=== PATIENT | female | born 1980 | race Caucasian/White ===

== ENCOUNTER 2020-11-25 11:29 | Emergency (ER) | payer OTHER, SELFPAY ==
[2020-11-25 11:47] VITALS: BP 166/110; PULSE 81; RESP 18; TEMP 36.4; O2SAT 96; BMI 31.7
--- NOTE | 2020-11-25 11:53 | HMH.EDUTC ---
[facility] [place] Clinical Impression: UTI (urinary tract infection) Qualifiers: Urinary tract infection type: site unspecified Hematuria presence: with hematuria Qualified Code(s): N39.0 - Urinary tract infection, site not specified Hematuria Qualifiers: Hematuria type: gross Qualified Code(s): R31.0 - Gross hematuria Disposition: Home, Self-Care Condition on Discharge: Good Instructions: Urinary Tract Infection, DI for Urinary Tract Infection (UTI) Additional Instructions: Drink plenty of fluids. Take tylenol or ibuprofen for pain or fever. Take the medications as directed. Follow up with your regular doctor. GO TO THE ER FOR ANY WORSENING SYMPTOMS The pyridium will make your urine turn orange, this is an expected side effect. It will stain your clothes if it comes into contact with them. Prescriptions: Ondansetron [Zofran 4mg ODT] 4 mg PO Q8HP PRN #20 tab.rapdis PRN Reason: Nausea [facility] Ciprofloxacin HCl 500 mg PO BID 7 Days #14 tab Transmission Status: Received by [facility] Phenazopyridine HCl [Pyridium 200mg Tablet] 200 pow PO TID #6 tab [facility] Referrals: Sunni Goodwin [Primary Care Provider] - Forms: Work/School Release Time of Disposition: 12:36 Medical Decision Making - Medical Records Medical records reviewed: No: I reviewed the patient's medical records. - Lang Inquiry Pt receiving controlled substance: No Vital Signs: 11/25/20 11:47 11/25/20 12:47 Temperature 97.6 F 98 F Temperature Source Oral Pulse Rate 80 Pulse Rate [Left] 81 Respiratory Rate 18 18 Blood Pressure 000/00 L Blood Pressure [Right Arm] 166/110 H Blood Pressure Mean [Right Arm] 128 02 Sat by Pulse Oximetry 96 - Lab Data Lab results reviewed: Yes: I reviewed the patient's lab results. Orders (Tests/Meds): ED MEDICATIONS Discontinued Medications Generic Name Dose Route Start Last Admin Trade Name Freq PRN Reason Stop Dose Admin Ceftriaxone Sodium 1 gm 11/25/20 12:21 11/25/20 12:47 Ceftriaxone 1gm Vial IM 11/25/20 12:22 1 gm ONCE ONE Administration Protocol Ketorolac Tromethamine 60 mg 11/25/20 12:21 11/25/20 12:47 Ketorolac 60mg/2ml Vial IM 11/25/20 12:22 60 mg ONCE ONE Administration Lidocaine HCl 0 ml 11/25/20 12:21 11/25/20 12:47 Lidocaine 1% 5ml Pf Vial IM 11/25/20 12:22 2.5 ml ONCE ONE Administration ORDERS Category Date Time Status Urine Culture Stat Micro 11/25/20 12:01 [place] [facility] [place] - General Stated complaint: blood in urine, pelvic Time Seen by Provider: 11/25/20 11:53 Mode of Arrival: Ambulatory Source of Information: Patient Limitations: No Limitations Description of Symptoms (Recalled from Triage Doc. by RN): pt states she is having bilateral flank pain, LLQ pain, frequency and burning with urination. pt states she is having large amounts of blood in her urine. the blood in urine happend 1x 3-4 wks ago and 1x about two months ago however, there was no pain or any other symptoms. pt has a hx of kidney stones. HEENT Symptoms (Recalled from RN notes): No Resp Symptoms (Recalled from RN notes): No Skin Symptoms (Recalled from RN notes): No MS Symptoms (Recalled from RN notes): No Functional Status (Recalled from RN notes): na - History of Present Illness Provider Complaint: She states that for the past 1 day she has had blood in her urine, low back pain, and burning with urination. - Related Data Previous Rx's Medication Instructions Recorded Ciprofloxacin HCl 500 mg PO BID 7 Days #14 tab 11/25/20 Ondansetron [Zofran 4mg ODT] 4 mg PO Q8HP PRN #20 tab.rapdis 11/25/20 Phenazopyridine HCl [Pyridium 200 pow PO TID #6 tab 11/25/20 200mg Tablet] Allergies Allergy/AdvReac Type Severity Reaction Status Date / Time No Known Allergies Allergy Verified 11/25/20 12:46
[2020-11-25 12:47] VITALS: BP 000/00; PULSE 80; RESP 18; TEMP 36.6
== END 2020-11-25 12:59 | disposition home or self-care (01) ==
PROVIDERS: Emergency Provider Nurse Practitioner Family; PCP Emergency Medicine
DX: N30.01 Acute cystitis with hematuria (principal)
CPT/HCPCS: 87086; 96372; 99202; G0463

== ENCOUNTER 2021-03-06 00:17 | Emergency (ER) | payer OTHER, SELFPAY ==
[2021-03-06] VITALS (13 sets, daily range): BP systolic 112–164; BP diastolic 72–98; PULSE 62–86; RESP 16–20; TEMP 36.7–37; O2SAT 93–100; BMI 32.5
--- NOTE | 2021-03-06 00:37 | CT_ITS ---
PROCEDURE INFORMATION: Exam: CT Abdomen And Pelvis Without Contrast Exam date and time: 03/06/2021 12:37 AM Age: 41 years old Clinical indication: Nausea and vomiting; Abdominal pain; Left lower quadrant (llq); Prior surgery; Patient HX: Lt lower flank pain with n/v, HX of stones, no abd SX other than previous lithotripsy; Additional info: L flank, llq abd pain with hematuria TECHNIQUE: Imaging protocol: Computed tomography of the abdomen and pelvis without contrast. Radiation optimization: All CT scans at this facility use at least one of these dose optimization techniques: automated exposure control; mA and/or kV adjustment per patient size (includes targeted exams where dose is matched to clinical indication); or iterative reconstruction. COMPARISON: No relevant prior studies available. FINDINGS: Lungs: Mild dependent atelectasis. Liver: Unremarkable noncontrast appearance. Gallbladder and bile ducts: No wall thickening. No calcified stones. No biliary dilation. Pancreas: Unremarkable noncontrast appearance. Spleen: Normal. No splenomegaly. Adrenal glands: Normal. No mass. Kidneys and ureters: There is marked dilation of the left upper pole collecting system. There is an exophytic mass measuring 3.6 x 2.6 x 3.6 cm, which arises from the posterior aspect of the left upper pole. Its attenuation is similar to that of the left renal collecting system, and could be an extension of the dilated left upper pole collecting system, a cyst containing complex fluid, or a soft tissue mass. There is a 4 mm calcification within this exophytic left upper pole mass. [id number] left pelviectasis and left lower pole caliectasis. There are few small caliceal calculi at the left lower pole measuring up to 2 mm in size. There is abnormal high attenuation within the left renal collecting system and ureter consistent with hemorrhage. No left ureteral calculus or obstruction. Right kidney is unremarkable. No nephrolithiasis. Hydronephrosis. Stomach and bowel: No obstruction. No abnormal bowel wall thickening. Appendix: No evidence of appendicitis. Intraperitoneal space: No pneumoperitoneum. No ascites. Vasculature: Unremarkable. No abdominal aortic aneurysm. Lymph nodes: No enlarged lymph nodes. Urinary bladder: No wall thickening. Reproductive: Unremarkable as visualized. Bones/joints: Unremarkable. No acute fracture. Soft tissues: Unremarkable. IMPRESSION: 1. Abnormally dilated left renal collecting system, most significantly affecting the upper pole. No ureteral dilation/obstruction. There is hemorrhage within the left renal collecting system and ureter, the exact etiology of which is unclear. 2. Indeterminate exophytic mass arising from the left upper pole measuring 3.6 x 2.6 x 3.6 cm. Unclear if this represents a markedly dilated left upper pole calyx, a cyst containing complex fluid, or a soft tissue mass. Renal ultrasound may be useful for further assessment in the short-term. Additionally, following resolution of collecting system hemorrhage, a renal protocol CT or MRI would be advisable for complete characterization. 3. Nonobstructing left renal calculi.
[2021-03-06 00:43] LABS: Microscopic, Urine URINE MICROSCOPIC (MICROSCOPIC)
[2021-03-06 00:48] LABS: Chloride 105 mmol/L (98-107); Sodium 140 mmol/L (136-145)
[2021-03-06 00:50] LABS: Urine Pregnancy, HCG Qual. Negative (Negative)
[2021-03-06 00:51] LABS: Alanine Aminotransferase 19 U/L (12-78); Albumin Level 4.1 g/dl (3.5-5.0); Albumin/Globulin Ratio 1.5 (1.1-1.8); Alkaline Phosphatase 94 U/L (38-126); Amylase 54 U/L (30-110); Aspartate Amino Transferase 23 U/L (14-36); Bilirubin,Total 0.3 mg/dl (0.2-1.3); Blood Urea Nitrogen 11 mg/dl (7-17); Calcium 8.8 mg/dl (8.4-10.2); Carbon Dioxide 28 mmol/L (22.0-30.0); Creatinine Clearance Estimated 142 mL/min (50-200); Estimated Glomerular Filt Rate 92 ml/min (>60); GFR (African American) 111 ML/MIN (>60); Globulin 2.7 g/dL (1.3-3.2); Glucose 108 mg/dl (74-100); Lipase 32 U/L (23-300); Total Protein,Serum 6.8 g/dl (6.3-8.2)
[2021-03-06 00:52] LABS: Basophils # 0.1 K/mm3 (0-0.2); Basophils % 0.7 % (0.1-2.0); Eosinophils # 0.2 K/mm3 (0.0-0.4); Eosinophils % 1.5 % (0.1-12.0); Hematocrit 41.1 % (37.0-47.0); Lymphocytes # 2.5 K/mm3 (0.7-4.5); Lymphocytes % 19.6 % (10-50); Mean Corpuscular HGB Conc 31.6 g/dL (31.8-35.4); Mean Corpuscular Hemoglobin 26.9 pg (27.0-31.2); Mean Corpuscular Volume 85.2 fl (81-99); Mean Platelet Volume 8.5 fl (7.4-10.4); Monocytes # 0.6 K/mm3 (0.1-1.0); Monocytes % 4.9 % (1.7-9.3); Neutrophils # 9.4 K/mm3 (1.8-7.8); Neutrophils % 73.3 % (37.0-80.0); Platelet Count 291 K/mm3 (142-424); Red Blood Count 4.82 M/mm3 (4.20-5.40); Red Cell Distribution Width 13.4 % (11.5-17.5); White Blood Count 12.8 K/mm3 (4.8-10.8)
[2021-03-06 01:09] LABS: Appearance,Urine TURBID (Clear); Blood, Urine 3+ (Negative); Color,Urine AMBER (Yellow); Glucose,Urine (UA) TRACE (Negative); Ketones,Urine 1+ (Negative); Leukocyte Esterase,Urine 2+ (Negative); Nitrate,Urine POSITIVE (Negative); Protein,Urine 3+ (Negative); Urobilinogen,Urine >=8.0 EU/dl (0.2)
[2021-03-06 01:17] LABS: Bilirubin,Urine Negative (Negative)
[2021-03-06 01:45] LABS: Bacteria,Urine 2+ /lpf; Erythrocyte Sedimentation Rate 15 mm/hr (0-20)
[2021-03-06 02:08] LABS: Procalcitonin 0.035 ng/mL (0.0-2.0)
--- NOTE | 2021-03-06 02:31 | HMH.EDNVD ---
ED Disposition Clinical Impression: Renal mass, left Hematuria Qualifiers: Hematuria type: gross Qualified Code(s): R31.0 - Gross hematuria Disposition: Home, Self-Care Condition on Discharge: Good Instructions: DI for Hematuria Additional Instructions: see urology edward Prescriptions: levoFLOXacin [Levaquin 500mg tab] 500 mg PO DAILY #7 tab Transmission Status: [facility] Hydrocod/Acet 5/325 mg [[place] 5/325mg tablet] 1 tab PO Q6HP PRN #10 tab PRN Reason: Moderate To Severe Pain Transmission Status: [facility] Referrals: Sunni Goodwin [Primary Care Provider] - - Critical Care Critical Care Time: No Attestation: On 03/06/21, the high probability of a clinically significant, sudden or life threatening deterioration of the following system(s) required my full and direct attention, intervention and personal management. The time I documented below is in addition to time spent performing reported procedures but includes the following listed in this critical care notation. Medical Decision Making - Medical Records Medical records reviewed: Yes: I reviewed the patient's medical records. - Lang Inquiry Pt receiving controlled substance: No Vital Signs: 03/06/21 00:18 03/06/21 01:06 03/06/21 01:30 Temperature 98.6 F Temperature Source Oral Pulse Rate 80 62 Pulse Rate [Right] 83 Respiratory Rate 20 18 16 Blood Pressure 143/86 H 138/90 Blood Pressure [Right Arm] 136/80 Blood Pressure Mean 106 Blood Pressure Mean [Right Arm] 98 02 Sat by Pulse Oximetry 98 100 99 Oxygen Delivery Method Room Air Room Air Room Air 03/06/21 02:00 03/06/21 02:30 03/06/21 02:39 Temperature Temperature Source Pulse Rate 67 78 Pulse Rate [Right] Respiratory Rate 17 Blood Pressure 132/81 136/80 Blood Pressure [Right Arm] Blood Pressure Mean 108 103 Blood Pressure Mean [Right Arm] 02 Sat by Pulse Oximetry 98 99 Oxygen Delivery Method Room Air Room Air Room Air 03/06/21 03:00 03/06/21 03:31 03/06/21 04:00 Temperature Temperature Source Pulse Rate 85 83 81 Pulse Rate [Right] Respiratory Rate Blood Pressure 130/83 147/89 H 129/81 Blood Pressure [Right Arm] Blood Pressure Mean 107 108 98 Blood Pressure Mean [Right Arm] 02 Sat by Pulse Oximetry 99 98 93 L Oxygen Delivery Method Room Air Room Air 03/06/21 04:15 03/06/21 05:01 03/06/21 05:30 Temperature Temperature Source Pulse Rate 81 86 73 Pulse Rate [Right] Respiratory Rate Blood Pressure 124/82 112/74 120/80 Blood Pressure [Right Arm] Blood Pressure Mean 86 92 Blood Pressure Mean [Right Arm] 02 Sat by Pulse Oximetry 93 L 95 96 Oxygen Delivery Method 03/06/21 06:00 Temperature Temperature Source Pulse Rate 82 Pulse Rate [Right] Respiratory Rate Blood Pressure 116/72 Blood Pressure [Right Arm] Blood Pressure Mean 86 Blood Pressure Mean [Right Arm] 02 Sat by Pulse Oximetry 95 Oxygen Delivery Method - Lab Data Lab results reviewed: Yes: I reviewed the patient's lab results. Lab Results 03/06/21 00:35: Urine Color Carla, Urine Appearance Turbid, Urine pH 7.0, Ur Specific [place] 1.020, Urine Protein 3+, Urine Glucose (UA) Trace, Urine Ketones 1+, Urine Blood 3+, Urine Nitrate Positive, Urine Bilirubin Negative, Urine Urobilinogen >=8.0, Ur Leukocyte Esterase 2+ A, Urine RBC 5-10, Urine WBC 5-10, Urine Bacteria 2+ 03/06/21 00:35: WBC 12.8 H, RBC 4.82, Hgb 13.0, Hct 41.1, MCV 85.2, MCH 26.9 L, MCHC 31.6 L, RDW 13.4, Plt Count 291, MPV 8.5, Neut % (Auto) 73.3, Lymph % (Auto) 19.6, Sully % (Auto) 4.9, Eos % (Auto) 1.5, Baso % (Auto) 0.7, Neut # (Auto) 9.4 H, Lymph # (Auto) 2.5, Sully # (Auto) 0.6, Eos # (Auto) 0.2, Baso # (Auto) 0.1, ESR 15 03/06/21 00:35: Urine HCG, Qual Negative 03/06/21 00:35: Sodium 140, Potassium 4.0, Chloride 105, Carbon Dioxide 28, Anion Gap 11.0, BUN 11, Creatinine 0.70, Estimated Creat Clear 14
--- NOTE | 2021-03-06 06:18 | US_ITS ---
PROCEDURE: US KIDNEY CLINICAL INDICATION: abn ct Left renal mass evaluation COMPARISON: CT CT ABDOMEN PELVIS WO CON from 03/06/2021 FINDINGS: The right kidney is [id number]. No hydronephrosis, cortical thinning, or renal mass or perinephric fluid collection is evident. The left kidney is [id number]. There is a 5.6 x 3.3 cm solid appearing left renal mass which extends from the upper pole of the left kidney into the upper pole collecting system and appears to extend into the renal pelvis to at least the ureteropelvic junction possibly into the proximal left ureter. There is mild ectasia of the lower pole and mid polar renal calices. IMPRESSION: Solid-appearing mid upper pole left renal mass 5.6 x 3.3 cm which appears to extend into the left renal collecting system. This is highly suspicious for neoplasm. Suggest CT of the kidneys without and with contrast with renal protocol for further evaluation. Dictated by: Ernesto Bunch MD 03/06/2021 08:26 Ernesto Bunch MD in [place] 03/06/2021 08:26
[2021-03-06 07:02] LABS: Basophils % 0.3 % (0.1-2.0); Eosinophils % 0.1 % (0.1-12.0); Hematocrit 35.9 % (37.0-47.0); Hemoglobin 11.8 g/dL (12.2-16.2); Lymphocytes # 1.2 K/mm3 (0.7-4.5); Lymphocytes % 10.6 % (10-50); Mean Corpuscular Hemoglobin 28.2 pg (27.0-31.2); Mean Corpuscular Volume 85.6 fl (81-99); Mean Platelet Volume 7.7 fl (7.4-10.4); Monocytes # 0.5 K/mm3 (0.1-1.0); Monocytes % 4.6 % (1.7-9.3); Neutrophils # 9.6 K/mm3 (1.8-7.8); Neutrophils % 84.4 % (37.0-80.0); Platelet Count 214 K/mm3 (142-424); White Blood Count 11.4 K/mm3 (4.8-10.8)
[2021-03-06 07:09] LABS: Anion Gap 10.4 mEq/L (5-15); Blood Urea Nitrogen 11 mg/dl (7-17); Calcium 7.9 mg/dl (8.4-10.2); Carbon Dioxide 26 mmol/L (22.0-30.0); Chloride 109 mmol/L (98-107); Creatinine Clearance Estimated 166 mL/min (50-200); Estimated Glomerular Filt Rate 110 ml/min (>60); GFR (African American) 133 ML/MIN (>60); Glucose 113 mg/dl (74-100); Potassium 4.4 mmoL/L (3.5-5.1); Sodium 141 mmol/L (136-145)
--- NOTE | 2021-03-06 07:44 | PC.NURSE ---
radiology here to collect pt for renal u/s
--- NOTE | 2021-03-06 07:48 | PC.NURSE ---
Pt going to US
--- NOTE | 2021-03-06 08:30 | CT_ITS ---
PROCEDURE: CT ABDOMEN PELVIS W CON CLINICAL INDICATION: renal colic Left renal mass evaluation COMPARISON: CT CT ABDOMEN PELVIS WO CON from 03/06/2021 TECHNIQUE: IV Contrast: 75ML Isovue 370 Oral Contrast None Axial images obtained with sagittal and coronal reformats. All CT scans at the facility use one or more dose reduction, viz: automated exposure control, ma/kV adjustment per patient size (including targeted exams where dose is matched to indication, i.e. head), or iterative reconstruction technique. FINDINGS: LOWER THORAX: No acute finding ABDOMEN & PELVIS: There is a solid appearing left renal mass which extends from the upper pole of the left kidney posteriorly caudad into the left renal pelvis centrally and posteriorly and into the left UPJ region. Overall, the mass measures to 5.6 cm AP, 3.3 cm transverse, and 8.6 cm cephalad caudad. A small calcification is present along the cephalad portion of the mass. The mass is not particularly hypervascular. The left renal vein has an unremarkable appearance. The masses slightly exophytic to the upper pole of the left kidney. No obvious thoracic or abdominal wall invasion. There are few small retroperitoneal lymph nodes in the periaortic region on the left. No dominant adenopathy apparent. There is some minimal haziness of the perinephric renal fat. There are 2 nonobstructing stones in the lower pole of the left kidney each measuring approximately 3 mm. There is mild dilatation of the mid lower pole renal calices on the left. The right kidney, liver, spleen, pancreas, and adrenal glands have an unremarkable appearance. No intestinal obstruction or free air. No evidence of appendicitis. No pelvic mass or abnormal fluid collection. No acute bony findings. IMPRESSION: There is a solid appearing left renal mass as described above with extension into the left renal pelvis to the UPJ region. This is suspicious for neoplasm/renal cell carcinoma. It is possible this could be originating from the uro epithelium and extending into the left renal parenchyma. Some of the density in the renal pelvis and UPJ could also be related to blood clot. Ureteroscopy with tissue sampling suggested for further evaluation. There is mild dilatation of the mid lower pole renal calices on the left. No evidence of renal vein invasion. There are few small retroperitoneal lymph nodes on the left. Left nephrolithiasis Dictated by: Ernesto Bunch MD 03/06/2021 09:42 Ernesto Bunch MD in [place] 03/06/2021 09:42
--- NOTE | 2021-03-06 08:43 | PC.NURSE ---
Went in with MD and spoke to pt regarding possible diagnosis. Advised her of a couple of different options. Explained we would also be getting a CT with contrast. PT agreeable to POC and I told her as soon as her got here we would let him back with her to discuss options.
--- NOTE | 2021-03-06 08:55 | PC.NURSE ---
Pt to CT
== END 2021-03-06 10:50 | disposition home or self-care (01) ==
PROVIDERS: Emergency Provider Emergency Medicine; PCP Emergency Medicine
DX: N28.89 Other specified disorders of kidney and ureter (principal); R31.0 Gross hematuria
CPT/HCPCS: 74176; 74177; 76770; 80048; 80053; 81001; 81025; 82150; 83690; 84145; 85025; 85651; 86140; 87086; 96365; 96366; 96367; 96375; 96376; 99283; J2405; Q9967

== ENCOUNTER 2022-07-07 23:16 | Emergency (ER) | payer OTHER, SELFPAY ==
[2022-07-07 23:18] VITALS: BP 131/99; PULSE 122; RESP 25; TEMP 36.9; O2SAT 96; BMI 30.7
[2022-07-07 23:40] VITALS: BP 131/99; PULSE 118; RESP 21; O2SAT 97
[2022-07-07 23:41] VITALS: BMI 30.7
--- NOTE | 2022-07-07 23:42 | PC.NURSE ---
BC x2 sent per protocol.
[2022-07-07 23:53] LABS: Basophils # 0.1 K/mm3 (0-0.2); Basophils % 0.6 % (0.1-2.0); Eosinophils # 0.4 K/mm3 (0.0-0.4); Eosinophils % 2.5 % (0.1-12.0); Hematocrit 42.3 % (37.0-47.0); Hemoglobin 13.4 g/dL (12.2-16.2); Lymphocytes # 1.6 K/mm3 (0.7-4.5); Lymphocytes % 11.3 % (10-50); Mean Corpuscular HGB Conc 31.7 g/dL (31.8-35.4); Mean Corpuscular Hemoglobin 24.5 pg (27.0-31.2); Mean Corpuscular Volume 77.3 fl (81-99); Mean Platelet Volume 7.8 fl (7.4-10.4); Monocytes # 0.7 K/mm3 (0.1-1.0); Monocytes % 4.9 % (1.7-9.3); Neutrophils # 11.3 K/mm3 (1.8-7.8); Neutrophils % 80.8 % (37.0-80.0); Platelet Count 465 K/mm3 (142-424); Red Blood Count 5.47 M/mm3 (4.20-5.40); Red Cell Distribution Width 17.4 % (11.5-17.5); White Blood Count 13.9 K/mm3 (4.8-10.8)
[2022-07-08] VITALS (8 sets, daily range): BP systolic 140–158; BP diastolic 102–110; PULSE 102–114; RESP 13–23; TEMP 36.6; O2SAT 94–99
[2022-07-08] LABS: Alanine Aminotransferase 24 U/L (12-78); Albumin Level 4.2 g/dl (3.5-5.0); Albumin/Globulin Ratio 1.4 (1.1-1.8); Alkaline Phosphatase 98 U/L (38-126); Amylase 48 U/L (30-110); Aspartate Amino Transferase 25 U/L (14-36); Bilirubin,Total 0.5 mg/dl (0.2-1.3); Blood Urea Nitrogen 20 mg/dl (7-17); Carbon Dioxide 25 mmol/L (22.0-30.0); Chloride 102 mmol/L (98-107); Creatinine Clearance Estimated 107 mL/min (50-200); Estimated Glomerular Filt Rate 68 ml/min (>60); GFR (African American) 83 ML/MIN (>60); Globulin 3.1 g/dL (1.3-3.2); Glucose 95 mg/dl (74-100); Lipase 44 U/L (23-300); Sodium 138 mmol/L (136-145); Total Protein,Serum 7.3 g/dl (6.3-8.2)
--- NOTE | 2022-07-08 | CT_ITS ---
PROCEDURE INFORMATION: Exam: CT Abdomen And Pelvis With Contrast Exam date and time: 07/08/2022 1:10 AM Age: 42 years old Clinical indication: Abdominal pain; Localized; Right lower quadrant (rlq); Prior surgery; Surgery type: Left nephrectomy, peritoneal tube; Additional info: Abd pain, n/d, poss infected peritoneal tube TECHNIQUE: Imaging protocol: Computed tomography of the abdomen and pelvis with contrast. Total images: 320 Radiation optimization: All CT scans at this facility use at least one of these dose optimization techniques: automated exposure control; mA and/or kV adjustment per patient size (includes targeted exams where dose is matched to clinical indication); or iterative reconstruction. Contrast material: ISOVUE; Contrast volume: 75 ml; Contrast route: IV; REPORTING DATA: Count of CT and Cardiac NM exams in prior 12 months: This patient has received 0 known CTs and 0 known cardiac nuclear medicine studies in the 12 months prior to the current study. COMPARISON: CT ABDOMEN PELVIS W CON 03/06/2021 8:58 AM FINDINGS: Tubes, catheters and devices: Peritoneal catheter in the anterior right lower quadrant. Lungs: Extensive lung base metastases with innumerable bilateral noncalcified pulmonary nodules of varying size. Volume loss left lower lobe with basilar segmental atelectasis. Additional right lower lobe dependent edema. Pleural spaces: Small left pleural effusion. Heart: Normal heart size. Trace pericardial fluid. Liver: Slight decreased liver attenuation likely from phase of contrast. Liver is normal in size. No liver mass. Gallbladder and bile ducts: Borderline hydropic gallbladder. No calcified gallstones or secondary signs of acute cholecystitis. No bile duct dilatation. Pancreas: Normal. No ductal dilation. Spleen: Normal. No splenomegaly. Adrenal glands: 13 mm left adrenal nodule concerning for metastases. Unremarkable right adrenal gland. Kidneys and ureters: Status post left nephrectomy. There are few tiny right renal cortical hypodensities, too small to characterize. No discrete right renal mass, nephrolithiasis or hydronephrosis. Stomach and bowel: Stomach is mildly distended with recently ingested content. Unremarkable duodenum. No ileus or bowel obstruction. There is a swirled appearance of the right lower quadrant mesentery with abrupt contour deformity at the junction of the cecum and ascending colon with the cecum directed vertically. There is a swirled appearance of the terminal ileum. The cecum is not overly distended at this time. No bowel wall thickening or pneumatosis. Mild colonic stool burden. Unremarkable rectum. Appendix: Nonvisualized. Intraperitoneal space: Trace free fluid within the abdomen. No free intraperitoneal air. Diffuse soft tissue stranding throughout the omentum and to lesser extent mesentery compatible with peritoneal carcinomatosis. Vasculature: Abdominal aorta is normal in caliber. Major abdominal vessels enhance appropriately. Mild pelvic venous congestion. Lymph nodes: Multiple soft tissue nodules in the left renal fossa including left periaortic adenopathy. Urinary bladder: Unremarkable as visualized. Reproductive: Mildly enlarged bilateral ovaries. Right ovary contains a indistinct 4.4 cm lesion with a fluid fluid level likely reflecting complex cyst. Additional indistinct left ovarian lesions. Trace free pelvic fluid. Bones/joints: No acute osseous abnormality or concerning bone lesions. Soft tissues: Postsurgical scarring midline abdominal wall. IMPRESSION: 1. Peritoneal carcinomatosis with diffuse soft tissue infiltration throughout the omentum and to a lesser ext
--- NOTE | 2022-07-08 | XR_ITS ---
PROCEDURE INFORMATION: Exam: XR Chest Exam date and time: 07/08/2022 12:36 AM Age: 42 years old Clinical indication: Shortness of breath; Patient HX: HX lung cancer; Additional info: Lung cancer, increased SOA TECHNIQUE: Imaging protocol: Radiologic exam of the chest. Views: 2 views. Total images: 2 COMPARISON: CT ABDOMEN PELVIS W CON 07/07/2022 11:53 PM FINDINGS: Lungs: Diffuse pulmonary metastases with innumerable lung nodules throughout both lungs. Left basilar airspace consolidation and/or atelectasis. No pulmonary vascular congestion or interstitial edema. Pleural spaces: Small to moderate left pleural effusion. No pneumothorax. Heart/Mediastinum: Unremarkable. No cardiomegaly. No mediastinal widening or hilar enlargement. Bones/joints: Unremarkable. IMPRESSION: 1. Extensive pulmonary metastases. 2. Small to moderate left pleural effusion 3. Left basilar atelectasis or airspace consolidation/pneumonia.
[2022-07-08 00:02] LABS: Lactic Acid 2.7 mmol/L (0.7-2.1)
[2022-07-08 00:06] LABS: C-Reactive Protein 183.1 mg/L (0-4)
[2022-07-08 00:20] LABS: Procalcitonin 0.093 ng/mL (0.0-2.0); T4 (Thyroxine) 8.6 ug/dl (5.53-11.0)
[2022-07-08 00:28] LABS: HCG Qualitative, Serum Negative (Negative)
[2022-07-08 00:33] LABS: Thyroid Stimulating Hormone 6.41 uIU/mL (0.465-4.68)
[2022-07-08 00:41] LABS: Erythrocyte Sedimentation Rate 13 mm/hr (0-20)
--- NOTE | 2022-07-08 00:44 | PC.NURSE ---
patient gone to CT at this time.
--- NOTE | 2022-07-08 00:58 | PC.NURSE ---
patient back in room at this time.
--- NOTE | 2022-07-08 01:12 | PC.NURSE ---
pt in the bathroom in attempt to give urine sample
[2022-07-08 01:22] LABS: Microscopic, Urine URINE MICROSCOPIC (MICROSCOPIC)
[2022-07-08 01:24] LABS: Appearance,Urine CLEAR (Clear); Bilirubin,Urine Negative (Negative); Blood, Urine Negative (Negative); Color,Urine YELLOW (Yellow); Glucose,Urine (UA) Negative (Negative); Ketones,Urine Negative (Negative); Leukocyte Esterase,Urine Negative (Negative); Nitrate,Urine Negative (Negative); Protein,Urine Negative (Negative); Urobilinogen,Urine 0.2 EU/dl (0.2)
[2022-07-08 01:38] LABS: Bacteria,Urine 1+ /lpf
--- NOTE | 2022-07-08 01:42 | PC.NURSE ---
Rounded on patient. No needs voiced at this time.
--- NOTE | 2022-07-08 02:45 | HMH.EDABDPAI ---
Discharge Plan Disposition Chief Complaint: Abdominal Pain Prescriptions Prescriptions: No Action ondansetron 4 MG tablet,disintegrating 4 mg PO Q8HP PRN (Reason: Nausea) Qty: 20 0RF nifedipine 30 mg tablet extended release 24hr 60 mg PO DAILY Label Comments: TAKE 1 TABLET BY MOUTH ONCE DAILY metoprolol succinate 50 mg tablet extended release 24 hr 50 mg PO DAILY levothyroxine 75 mcg tablet 75 mcg PO DAILY promethazine 25 mg tablet 25 mg PO Q4-6H PRN (Reason: nausea & vomiting) Label Comments: TAKE 1 TABLET BY MOUTH EVERY 4 TO 6 HOURS NEEDED FOR VOMITING everolimus (antineoplastic) 5 mg tablet 5 mg PO DAILY Rx Instructions: to begin once Lenvima is up to 18mg daily Lenvima 18 mg/day (10 mg x 1-4 mg x2) capsule 14 mg PO DAILY Referrals Follow up/Referrals: Sunni Goodwin [Primary Care Provider] - See instructions Clinical Impressions Clinical Impression: Cecal volvulus, Hx of renal cell cancer Stand Alone Forms Stand Alone Forms: Transfer Record - ED Instructions Patient Instructions: DI for Acute Abdominal Pain Discharge ED Provider: Maninder (ED)Aramis Abdominal Pain HPI General Chief Complaint: Abdominal Pain Stated Complaint: tube removal per doctor; cancer patient Time Seen by Provider: 07/08/22 02:45 Mode of Arrival: Family Vehicle Source of Information: Patient, Spouse and Medical Record Limitations: No Limitations Description of Symptoms (Recalled from ER Triage Doc. by RN): Pt c/o RLQ ABD pain and tenderness. She has a peritoneal tube to RLQ ABD that is supposed to be removed tomrrow at her PCP (Dr. Goodwin). Pt reports the tube was draining out about 2L daily until about 10 days ago when it began to have no output. Denies any increase distention or pain at this time. Pt is a cancer pt with [facility] in [place] and Dr. Hang Estrada is her Oncologist. Pt s/w her care team there who advised her to go to the ER to check for infection of tube site & removal. Pt states she has increased nausea and vomiting over the last 3-4 days, however she attributed to be from her increased dose of Chemotherapy (Lenvima). Then, the tube site began red, painful to touch, and from the insicion site it is draining green/brownish discharge. She denies a fever but does report chills. She also reports having diarrhea all day today. She took Zofran, pepcid, and phenergan [id number] tonight. History of Present Illness HPI narrative: pt with hx of 02/14 with lt renal cancer and then nephrectomy 04/16 at and then to 09/15 with metastatic dis and since has been with md barak braun - on oral chemo now with known metastatic dis - and has drain placed for ascites about 6 weeks ago and was draining till about 10 days ago and increased pain in rt lower quadrant and nausea w/o fever complaint: abdominal pain Onset (ago): day(s) Consistency: intermittent Location: RLQ Severity: moderate Associated symptoms: denies other symptoms Related Data Home Medications Medication Instructions Recorded Confirmed everolimus (antineoplastic) 5 mg 5 mg PO DAILY chemo 07/08/22 07/08/22 tablet lenvatinib 18 mg/day (10 mg x 1 14 mg PO DAILY chemotherapy 07/08/22 07/08/22 and 4 mg x 2) capsule (Lenvima) levothyroxine 75 mcg tablet 75 mcg PO DAILY thyroid 07/08/22 07/08/22 metoprolol succinate 50 mg 50 mg PO DAILY High blood pressure 07/08/22 07/08/22 tablet,extended release 24 hr nifedipine 30 mg tablet,extended 60 mg PO DAILY High blood pressure 07/08/22 07/08/22 release 24 hr promethazine 25 mg tablet 25 mg PO Q4-6H PRN nausea & 07/08/22 07/08/22 vomiting Previous Rx's Medication Instructions Recorded ondansetron 4 mg disintegrating 4 mg PO Q8HP PRN Nausea ##20 11/25/20 tablet Allergies Allergy/AdvReac Type Severity Reaction Status Date / Time No Known Allergies Allergy Verified 11/25/20 12:46 [facility] Disclaimer: The informati
--- NOTE | 2022-07-08 03:25 | PC.NURSE ---
in room talking to patient at this time.
[2022-07-08 03:30] LABS: Reflex Lactic Add Lactic Reflex
[2022-07-08 03:42] LABS: Lactic Acid Follow Up (RFLX 1) 1.1 mmol/L (0.7-2.1)
--- NOTE | 2022-07-08 03:47 | PC.NURSE ---
Maninder speaking to Dakota at this time
--- NOTE | 2022-07-08 03:47 | PC.NURSE ---
Assisted pt to the bathroom
== END 2022-07-08 04:45 | disposition short-term general hospital (02) ==
PROVIDERS: Emergency Provider Emergency Medicine; PCP Emergency Medicine
DX: K56.2 Volvulus (principal); R10.31 Right lower quadrant pain; R11.2 Nausea with vomiting, unspecified; Z85.528 Personal history of other malignant neoplasm of kidney; Z92.21 Personal history of antineoplastic chemotherapy
CPT/HCPCS: 71046; 74177; 80053; 81001; 82150; 83605; 83690; 84145; 84436; 84443; 84703; 85025; 85651; 86140; 87040; 87070; 87077; 87186; 87205; 96361; 96374; 96375; 96376; 99285; J2405; Q9967

== ENCOUNTER 2022-09-30 11:49 | Inpatient (IN) | payer OTHER, SELFPAY ==
[2022-09-30] VITALS (8 sets, daily range): BP systolic 118–155; BP diastolic 82–104; PULSE 118–121; RESP 16–20; TEMP 36.5–36.7; O2SAT 91–96; BMI 32.3; BMI 31.1
--- NOTE | 2022-09-30 12:07 | HMH.EDGENADL ---
Discharge Plan Disposition Patient Disposition: Admitted Chief Complaint: Weakness Prescriptions Prescriptions: No Action ondansetron 4 MG tablet,disintegrating 4 mg PO Q8HP PRN (Reason: Nausea) Qty: 20 0RF nifedipine 30 mg tablet extended release 24hr 60 mg PO DAILY Label Comments: TAKE 1 TABLET BY MOUTH ONCE DAILY metoprolol succinate 50 mg tablet extended release 24 hr 50 mg PO DAILY levothyroxine 75 mcg tablet 75 mcg PO DAILY promethazine 25 mg tablet 25 mg PO Q4-6H PRN (Reason: nausea & vomiting) Label Comments: TAKE 1 TABLET BY MOUTH EVERY 4 TO 6 HOURS NEEDED FOR VOMITING everolimus (antineoplastic) 5 mg tablet 5 mg PO DAILY Rx Instructions: to begin once Lenvima is up to 18mg daily Lenvima 18 mg/day (10 mg x 1-4 mg x2) capsule 14 mg PO DAILY Referrals Follow up/Referrals: Provider,Referral, MD [Referring] - See instructions Clinical Impressions Clinical Impression: JANA (acute kidney injury), Acute dehydration, Diarrhea, Chronic back pain, Metastatic renal cell carcinoma Discharge ED Provider: Blayne Moya General Adult HPI General Chief complaint: Weakness Stated complaint: Weakness Time Seen by Provider: 09/30/22 12:07 History of Present Illness HPI narrative: Patient is a 42-year-old with a history of metastatic renal cell carcinoma recently transitioning to hospice care who presents today with multiple complaints including increasing lethargy weakness shortness of breath abdominal distention and some diarrhea. She states that her back pain is was bothering her the most. She has had multiple paracentesis in the past and feels that her shortness of breath is likely secondary to fluid retention. Her family states that she does still want anything will make her feel better and has not withdrawn from cancer care but they still want aggressive medical management within reason for anything that we will provide palliative measures. She is more pale than normal as well but has not had any melena did have a possible episode of coffee-ground emesis yesterday. Related Data Home Medications Medication Instructions Recorded Confirmed everolimus (antineoplastic) 5 mg 5 mg PO DAILY chemo 07/08/22 07/08/22 tablet lenvatinib 18 mg/day (10 mg x 1 14 mg PO DAILY chemotherapy 07/08/22 07/08/22 and 4 mg x 2) capsule (Lenvima) levothyroxine 75 mcg tablet 75 mcg PO DAILY thyroid 07/08/22 07/08/22 metoprolol succinate 50 mg 50 mg PO DAILY High blood pressure 07/08/22 07/08/22 tablet,extended release 24 hr nifedipine 30 mg tablet,extended 60 mg PO DAILY High blood pressure 07/08/22 07/08/22 release 24 hr promethazine 25 mg tablet 25 mg PO Q4-6H PRN nausea & 07/08/22 07/08/22 vomiting Previous Rx's Medication Instructions Recorded ondansetron 4 mg disintegrating 4 mg PO Q8HP PRN Nausea ##20 11/25/20 tablet Allergies Allergy/AdvReac Type Severity Reaction Status Date / Time No Known Allergies Allergy Verified 11/25/20 12:46 [facility] Disclaimer: The information contained in this section may have been updated after the patient was seen, as this information can be updated by other users. Social History (Updated 07/08/22 @ 04:43 by Aramis Dickens (ED)MD) Smoking Status: Never smoker alcohol intake: never current occupational status: other Travel in the last 8 weeks: None ROS Obtained: Yes All systems reviewed & no additional complaints except as documented Physical Exam General General appearance: other (Ill-appearing wasted and her facial structures and pale appearance) Respiratory Respiratory exam: Present normal lung sounds bilaterally; Absent respiratory distress, wheezes or stridor Cardiovascular Cardiovascular exam: Present tachycardia Abdominal Exam Abdominal exam: Present other (Distended with positive fluid wave no focal tenderness) Neurological Exam Neurological exam: Present alert and orien
[2022-09-30 12:17] LABS: Basophils # 0.1 K/mm3 (0-0.2); Basophils % 0.3 % (0.1-2.0); Eosinophils # 0.2 K/mm3 (0.0-0.4); Eosinophils % 1.3 % (0.1-12.0); Hematocrit 41.4 % (37.0-47.0); Hemoglobin 13.3 g/dL (12.2-16.2); Lymphocytes # 0.9 K/mm3 (0.7-4.5); Lymphocytes % 4.8 % (10-50); Mean Platelet Volume 7.5 fl (7.4-10.4); Monocytes % 5.1 % (1.7-9.3); Neutrophils # 16.5 K/mm3 (1.8-7.8); Neutrophils % 88.5 % (37.0-80.0); Platelet Count 643 K/mm3 (142-424); Red Blood Count 5.52 M/mm3 (4.20-5.40); Red Cell Distribution Width 18.2 % (11.5-17.5); White Blood Count 18.7 K/mm3 (4.8-10.8)
[2022-09-30 12:21] LABS: Chloride 86 mmol/L (98-107); Sodium 125 mmol/L (136-145)
[2022-09-30 12:22] LABS: Potassium 4.9 mmoL/L (3.5-5.1)
[2022-09-30 12:24] LABS: Alanine Aminotransferase 22 U/L (12-78); Albumin Level 3.1 g/dl (3.5-5.0); Albumin/Globulin Ratio 0.9 (1.1-1.8); Alkaline Phosphatase 287 U/L (38-126); Anion Gap 27.9 mEq/L (5-15); Aspartate Amino Transferase 29 U/L (14-36); Bilirubin,Total 0.5 mg/dl (0.2-1.3); Carbon Dioxide 16 mmol/L (22.0-30.0); Globulin 3.4 g/dL (1.3-3.2); Phosphorous 9.2 mg/dl (2.5-4.5); Total Protein,Serum 6.5 g/dl (6.3-8.2)
[2022-09-30 12:25] LABS: Calcium 9.5 mg/dl (8.4-10.2); Glucose 113 mg/dl (74-100); Magnesium 2.7 mg/dl (1.6-2.3)
[2022-09-30 12:26] LABS: INR 1.35 (0.9-1.1); Prothrombin Time 14.3 seconds (10.1-12.5)
[2022-09-30 12:31] LABS: Creatinine Clearance Estimated 29 mL/min (50-200); Estimated Glomerular Filt Rate 14 ml/min (>60); GFR (African American) 17 ML/MIN (>60)
[2022-09-30 12:32] LABS: Blood Urea Nitrogen 85 mg/dl (7-17)
[2022-09-30 12:36] LABS: Troponin I < 0.01 ng/ml (0.00-0.034)
[2022-09-30 12:38] LABS: MANUAL DIFFERENTIAL MANUAL DIFFERENTIAL (MANUAL DIFF)
--- NOTE | 2022-09-30 12:40 | PC.NURSE ---
swab sent to lab
[2022-09-30 12:42] LABS: Coronavirus 19, PCR Not Detected (NotDetected); Influenza A, PCR Not Detected (NotDetected); Influenza B, PCR Not Detected (NotDetected)
--- NOTE | 2022-09-30 12:42 | XR_ITS ---
FINAL REPORT CLINICAL HISTORY: dyspnea COMPARISON: 07/08/2022 FINDINGS: There are bilateral nodular opacities present, that may represent neoplasm or infection. These were noted on a prior CT examination of July 08. There is no evidence of effusion or pneumothorax. Mediastinum is unremarkable. Heart size is normal. IMPRESSION: Bilateral nodular opacities, noted on the prior CT examination dated July 08, 2022 and felt to be secondary to pulmonary metastases at that time. Reviewed, Interpreted and Dictated by Raine Ochoa MD Transcribed by Cherelle Phelan Authenticated and . [facility]
--- NOTE | 2022-09-30 12:42 | PC.NURSE ---
checked on pt nothing needed at this time, family at bedside
--- NOTE | 2022-09-30 12:46 | PC.NURSE ---
Dr Moya speaking to dr Valencia
--- NOTE | 2022-09-30 12:46 | PC.NURSE ---
speaking with hospitalist at this time for admission
[2022-09-30 12:52] LABS: Lymphocytes % 2 % (10-50); Monocytes % 3 % (2-9); NT Pro Brain Natriuretic Pep. 1550 pg/mL (0-125); Neutrophils % 95 % (42-76); Total Cells Counted 100
--- NOTE | 2022-09-30 12:52 | PC.NURSE ---
Care management called for admission
[2022-09-30 12:53] LABS: Platelet Estimate Moderate Increase; RBC Morphology Normal
--- NOTE | 2022-09-30 13:37 | PC.NURSE ---
dilaudid 0.5 mg IM order placed by accident, changed to 0.5 mg dilaudid IV corrected.
--- NOTE | 2022-09-30 14:47 | SW/DCPLANNER ---
Addendum entered by [facility] 10/02/22 13:51: I have updated Maritza/Daisy w/ [facility] that patient will return home today. Addendum entered by [facility] 10/01/22 11:20: Daisy/Elizabeth courtney/ [facility] will have a discussion w/ patient's today regarding goals of care. Addendum entered by [facility] 10/01/22 09:59: Daisy courtney/ [facility] will be onsite to evaluate this patient today. Original Note: This patient is currently established with [facility]. Per Maritza courtney/ [facility] patient's admission is related to Hospice diagnosis.
[2022-09-30 15:51] LABS: Troponin I < 0.01 ng/ml (0.00-0.034)
--- NOTE | 2022-09-30 16:05 | EXP.HP ---
History of Present Illness *Admission Date: 09/30/22 *Reason for visit:: weakness, diarrhea *History of present illness: Ms. rodrigues is a 42-year-old female with history of metastatic renal cell carcinoma. She is recently transition to hospice care over the past 1 to 2 weeks to focus on symptom management. She is discontinued all curative measures given the metastatic nature of her disease and failure to respond to previous therapy. Presented today to the ER because of weakness, nausea, and diarrhea. at bedside helps give history. States the patient had not had any bowel movements for 4 to 5 days and developed nausea yesterday that was subsequently followed by her first bowel movement in several days. She had been taking docusate and MiraLAX with no benefit. Started on lactulose yesterday. After having 3 small bowel movements yesterday, she began to have copious loose watery stools overnight last night. Today was very weak necessitating coming to the ER for further evaluation. On evaluation in the ER, patient has tachycardia and white cell count. There is limited concern for infection based on her presentation with no fever. Suspect white count secondary to her metastatic disease. Tachycardia due to dehydration. Also noted to have JANA with creatinine of 3.6. Held on paracentesis due to concern for fluid shifts and worsening JANA. Initiated fluid resuscitation with IV fluids. Requested admission to medicine for further management. Upon arrival to the floor, patient complains of just diffuse abdominal discomfort and distention. No emesis or nausea at this time. Denies any fevers or chest pain. Feels quite weak and is dozing during exam. supplements history. Renal cell carcinoma history as follows: Previous indwelling peritoneal drain for her ascites that was removed 3 months ago. Patient MD [facility] in [place] and Dr. Hang Estrada is her Oncologist. hx of 02/14 with lt renal cancer and then nephrectomy 04/16 at and then to 09/15 with metastasis previously [facility] Dis[facility]: The information contained in this section may have been updated after the patient was seen, as this information can be updated by other users. Social History (Updated 07/08/22 @ 04:43 by Aramis Dickens (FRANKY)MD) Smoking Status: Never smoker alcohol intake: never current occupational status: other Travel in the last 8 weeks: None Review of Systems Review of Systems Review of systems (narrative): 14 point review of systems performed, pertinent positives and negatives as per HPI Meds Home Medications and Allergies Home Medications Medication Instructions Recorded Confirmed Type ondansetron 4 mg disintegrating 4 mg PO Q8HP PRN Nausea ##20 11/25/20 09/30/22 Rx tablet levothyroxine 75 mcg tablet 75 mcg PO DAILY thyroid 07/08/22 09/30/22 History promethazine 25 mg tablet 25 mg PO Q4-6H PRN nausea & 07/08/22 09/30/22 History vomiting hydrocodone 7.5 mg-acetaminophen 1 tab PO Q4H MODERATE TO SEVERE 09/30/22 09/30/22 History 325 mg tablet PAIN New Prescriptions to Start Prescriptions: Allergies Allergy/AdvReac Type Severity Reaction Status Date / Time No Known Allergies Allergy Verified 09/30/22 13:48 Exam Data for Last 24 hours Vital signs and Labs for Last 24 Hours: Temp Pulse Resp BP Pulse Ox 97.9 F 118 H 16 131/86 91 L 09/30/22 15:07 09/30/22 15:07 09/30/22 15:07 09/30/22 15:07 09/30/22 15:07 Laboratory Results - last 24 hr 09/30/22 12:00: WBC 18.7 H, RBC 5.52 H, Hgb 13.3, Hct 41.4, MCV 75.0 L, MCH 24.0 L, MCHC 32.0, RDW 18.2 H, Plt Count 643 H, MPV 7.5, Neut % (Auto) 88.5 H, Lymph % (Auto) 4.8 L, [place] % (Auto) 5.1, Eos % (Auto) 1.3, Baso % (Auto) 0.3, Neut # (Auto) 16.5 H, Lymph # (Auto) 0.9, [place] # (Auto) 1.0, Eos # (Auto) 0.2, Baso # (Auto) 0.1, Total Counted 100, Neutrophils % (Manual) 95 H, Lymphocytes % (Manual) 2 L, Monocytes % (Manual)
--- NOTE | 2022-09-30 18:37 | PC.NURSE ---
A&OX4. TOLERATING RA WELL. FAMILY AT BEDSIDE WITH PATIENT. PURE WICK IN PLACE D/T PT WEAKNESS. ASCITES TO ABD, TIGHT AND TENDER TO TOUCH. PT GIVEN PAIN AND NAUSEA MEDICATION PER MAR, EFFECTIVENESS REPORTED. PT HAS HAD NO OTHER C/O. TOLERATING SIPS OF WATER. VSS.
[2022-09-30 18:58] LABS: Troponin I < 0.01 ng/ml (0.00-0.034)
[2022-09-30 20:22] LABS: Chloride 89 mmol/L (98-107)
[2022-09-30 20:23] LABS: Potassium 4.5 mmoL/L (3.5-5.1); Sodium 125 mmol/L (136-145)
[2022-09-30 20:26] LABS: Anion Gap 26.5 mEq/L (5-15); Carbon Dioxide 14 mmol/L (22.0-30.0); Glucose 111 mg/dl (74-100)
[2022-09-30 20:35] LABS: Creatinine Clearance Estimated 26 mL/min (50-200); Estimated Glomerular Filt Rate 13 ml/min (>60); GFR (African American) 16 ML/MIN (>60)
[2022-09-30 20:44] LABS: Blood Urea Nitrogen 81 mg/dl (7-17)
--- NOTE | 2022-09-30 21:07 | CT_ITS ---
PROCEDURE INFORMATION: Exam: CT Abdomen And Pelvis Without Contrast Exam date and time: 09/30/22 09:25 PM Age: 42 years old Clinical indication: Abdominal pain; Patient HX: HX renal cell carcinoma; Additional info: Abdominal pain, johnny, back pain, malignancy. TECHNIQUE: Imaging protocol: Computed tomography of the abdomen and pelvis without contrast. Radiation optimization: All CT scans at this facility use at least one of these dose optimization techniques: automated exposure control; mA and/or kV adjustment per patient size (includes targeted exams where dose is matched to clinical indication); or iterative reconstruction. REPORTING DATA: Count of CT and Cardiac NM exams in prior 12 months: This patient has received [address] and 0 known cardiac nuclear medicine studies in the 12 months prior to the current study. COMPARISON: CT ABDOMEN PELVIS W CON 07/07/22 11:53 PM FINDINGS: Tubes, catheters and devices: None noted. Lungs: Widespread pulmonary metastatic disease. Small left pleural effusion. Heart: No significant coronary calcifications. No cardiomegaly. No significant pericardial effusion. Liver: Normal. No mass. Gallbladder and bile ducts: Normal. No calcified stones. No ductal dilation. Pancreas: Normal. No ductal dilation. Spleen: Normal. No splenomegaly. Adrenal glands: Normal. No mass. Kidneys and ureters: Left nephrectomy. No hydronephrosis. Stomach and bowel: Unremarkable. No obstruction. No mucosal thickening. Appendix: No evidence of appendicitis. Intraperitoneal space: Omental cake. Malignant ascites. No free air. No significant fluid collection. Retroperitoneal space: No significant retroperitoneal inflammatory changes are noted. Vasculature: Unremarkable. No abdominal aortic aneurysm. Lymph nodes: Unremarkable. No enlarged lymph nodes. Urinary bladder: Unremarkable as visualized. Reproductive: 8 x 5.3 cm right ovarian mass. Bones/joints: Unremarkable. No acute fracture. Soft tissues: Unremarkable. IMPRESSION: 1. Omental cake. Malignant ascites. 2. Widespread pulmonary metastatic disease. 3. 8 x 5.3 cm right ovarian mass. 4. Left nephrectomy.
--- NOTE | 2022-09-30 22:37 | PC.NURSE ---
CALLED AND ADVISED FELTER TENNIS BALLS OF RECEIVING FINAL CT SCAN REPORT IN ED.
[2022-09-30 23:37] LABS: Microscopic, Urine URINE MICROSCOPIC (MICROSCOPIC)
[2022-09-30 23:39] LABS: Appearance,Urine CLEAR (Clear); Blood, Urine Negative (Negative); Color,Urine YELLOW (Yellow); Glucose,Urine (UA) Negative (Negative); Ketones,Urine Negative (Negative); Leukocyte Esterase,Urine Negative (Negative); Nitrate,Urine Negative (Negative); PH,Urine 5.5 (5.0-8.5); Protein,Urine Negative (Negative); Specific Gravity, Urine >= 1.030 (1.005-1.030); Urobilinogen,Urine 0.2 EU/dl (0.2)
[2022-09-30 23:55] LABS: Bilirubin,Urine 1+ (Negative)
[2022-09-30 23:56] LABS: Bacteria,Urine 1+ /lpf
[2022-10-01] VITALS: BP 111/79; PULSE 123; RESP 18; TEMP 36.6; O2SAT 92
[2022-10-01 03:40] VITALS: BP 132/90; PULSE 118; RESP 20; TEMP 36.3; O2SAT 93; BMI 31.3
--- NOTE | 2022-10-01 04:40 | PC.NURSE ---
Pt had not voided since earlier in the day. RN encouraged patient to get up and use restroom. Patient did void, but the ORTHOPEDIC PHYSICIAN still wanted to bladder scan patient. Upon bladder scanning Urine was >250 so a velasquez was placed. Urine sent down to lab. Patient has been in pain and nauseous most of the night. See MAR. Patient has had no BM tonight. Continues to be on Room Air.
[2022-10-01 05:57] LABS: Basophils # 0.1 K/mm3 (0-0.2); Basophils % 0.2 % (0.1-2.0); Eosinophils # 0.3 K/mm3 (0.0-0.4); Eosinophils % 1.6 % (0.1-12.0); Hematocrit 39.1 % (37.0-47.0); Hemoglobin 12.2 g/dL (12.2-16.2); Lymphocytes # 0.7 K/mm3 (0.7-4.5); Lymphocytes % 3.4 % (10-50); Mean Corpuscular HGB Conc 31.3 g/dL (31.8-35.4); Mean Corpuscular Hemoglobin 23.1 pg (27.0-31.2); Mean Corpuscular Volume 73.9 fl (81-99); Mean Platelet Volume 8.3 fl (7.4-10.4); Monocytes # 1.3 K/mm3 (0.1-1.0); Monocytes % 6.4 % (1.7-9.3); Neutrophils # 17.6 K/mm3 (1.8-7.8); Neutrophils % 88.4 % (37.0-80.0); Platelet Count 647 K/mm3 (142-424); Red Blood Count 5.29 M/mm3 (4.20-5.40); Red Cell Distribution Width 18.7 % (11.5-17.5); White Blood Count 19.9 K/mm3 (4.8-10.8)
[2022-10-01 06:03] LABS: MANUAL DIFFERENTIAL MANUAL DIFFERENTIAL (MANUAL DIFF)
[2022-10-01 06:10] LABS: Chloride 91 mmol/L (98-107); Sodium 126 mmol/L (136-145)
[2022-10-01 06:12] LABS: Alanine Aminotransferase 21 U/L (12-78); Aspartate Amino Transferase 27 U/L (14-36)
[2022-10-01 06:13] LABS: Albumin Level 2.7 g/dl (3.5-5.0); Albumin/Globulin Ratio 0.9 (1.1-1.8); Alkaline Phosphatase 256 U/L (38-126); Bilirubin,Total 0.3 mg/dl (0.2-1.3); Calcium 9.1 mg/dl (8.4-10.2); Carbon Dioxide 16 mmol/L (22.0-30.0); Globulin 3.1 g/dL (1.3-3.2); Glucose 105 mg/dl (74-100); Magnesium 2.5 mg/dl (1.6-2.3); Total Protein,Serum 5.8 g/dl (6.3-8.2)
[2022-10-01 06:19] LABS: Creatinine Clearance Estimated 25 mL/min (50-200); Estimated Glomerular Filt Rate 13 ml/min (>60); GFR (African American) 15 ML/MIN (>60)
[2022-10-01 06:50] LABS: Blood Urea Nitrogen 82 mg/dl (7-17)
--- NOTE | 2022-10-01 06:54 | US_ITS ---
FINAL REPORT TECHNIQUE: Ultrasound images of the kidneys and bladder were obtained. CLINICAL HISTORY: s/p left nephrectomy, johnny FINDINGS: The right kidney measures 11 cm in length. It is normal in echogenicity. There is no hydronephrosis Left kidney has been surgically resected. Moderate ascites is present. IMPRESSION: No hydronephrosis. Reviewed, Interpreted and Dictated by Raine Ochoa MD Transcribed by Cherelle Phelan Authenticated and [facility]
[2022-10-01 07:27] VITALS: BP 127/79; PULSE 121; RESP 16; TEMP 36.4; O2SAT 93
[2022-10-01 07:55] LABS: Lymphocytes % 3 % (10-50); Monocytes % 11 % (2-9); Neutrophils % 86 % (42-76); Platelet Estimate Moderate Increase; Total Cells Counted 100
[2022-10-01 07:56] LABS: Hypochromasia 2+; Microcytosis 1+
--- NOTE | 2022-10-01 08:18 | HMH.PHAINT1 ---
Pharmacy Intervention Comments: Home medication list verified using list from [facility].
--- NOTE | 2022-10-01 08:28 | EXP.ACUTE.PN ---
Subjective *Date: 10/01/22 *Time: 20:20 Interval history: Patient appears uncomfortable this morning. Complaining of abdominal distention this morning. Had slight improvement with placement of catheter. No improvement in kidney function with IV fluids. No appetite today. Continues to appear in distress. Family at bedside. Discussed risks and benefits of doing paracentesis at bedside today. Patient agreeable to proceed Medical Exam Vital signs and Labs for Last 24 Hours: Vital Signs Temp Pulse Pulse Resp BP BP Pulse Ox 10/01/22 07:27 97.5 F L 121 H 16 127/79 93 L 10/01/22 03:40 97.3 F L 118 H 20 132/90 93 L 10/01/22 00:00 97.9 F 123 H 18 111/79 92 L 09/30/22 20:00 98.1 F 121 H 18 118/82 93 L 09/30/22 15:07 97.9 F 118 H 16 131/86 91 L 09/30/22 14:19 97.7 F 118 H 18 155/104 H 95 09/30/22 13:54 97.7 F 119 H 20 138/90 09/30/22 13:00 119 H 144/101 H 93 L 09/30/22 12:30 140/98 H 09/30/22 12:00 121 H 136/99 H 96 09/30/22 11:49 97.7 F 120 H 16 127/97 H 96 Intake and Output 09/30/22 10/01/22 10/01/22 23:59 07:59 15:59 Intake Total 60 / 120 60 / 60 Output Total 200 / 200 0 / 0 Balance -140 / -80 60 / 60 Intake: Intake, Oral Amount 60 / 120 60 / 60 Output: Output, Urine Amount 200 / 200 0 / 0 Other: Number of Unmeasured Voids 0 Weight 85.185 kg Patient Weight 10/01/22 23:59 Weight 85.185 kg Laboratory Results - last 24 hr 09/30/22 12:00: WBC 18.7 H, RBC 5.52 H, Hgb 13.3, Hct 41.4, MCV 75.0 L, MCH 24.0 L, MCHC 32.0, RDW 18.2 H, Plt Count 643 H, MPV 7.5, Neut % (Auto) 88.5 H, Lymph % (Auto) 4.8 L, [place] % (Auto) 5.1, Eos % (Auto) 1.3, Baso % (Auto) 0.3, Neut # (Auto) 16.5 H, Lymph # (Auto) 0.9, [place] # (Auto) 1.0, Eos # (Auto) 0.2, Baso # (Auto) 0.1, Total Counted 100, Neutrophils % (Manual) 95 H, Lymphocytes % (Manual) 2 L, Monocytes % (Manual) 3, Platelet Estimate Moderate increase, RBC Morphology Normal 09/30/22 12:00: PT 14.3 H, INR 1.35 H, APTT 40.0 H 09/30/22 12:00: Sodium 125 L, Potassium 4.9, Chloride 86 L, Carbon Dioxide 16 L, Anion Gap 27.9 H, BUN 85 H, Creatinine 3.60 H, Estimated Creat Clear 29, Estimated GFR 14 L*, Est GFR ( Amer) 17 L*, Glucose 113 H, Calcium 9.5, Phosphorus 9.2 H, Magnesium 2.7 H, Total Bilirubin 0.5, AST 29, ALT 22, Alkaline Phosphatase 287 H, Troponin I < 0.01, Total Protein 6.5, Albumin 3.1 L, Globulin 3.4 H, Albumin/Globulin Ratio 0.9 L 09/30/22 12:00: NT-Pro-B Natriuret Pep 1550 H 09/30/22 12:22: Blood Type O Positive, Antibody Screen Negative 09/30/22 12:37: SARS-CoV-2 (PCR) Not detected, Influenza A Untype (PCR) Not detected, Influenza Type B (PCR) Not detected 09/30/22 15:17: Troponin I < 0.01 09/30/22 18:10: Troponin I < 0.01 09/30/22 20:00: Sodium 125 L, Potassium 4.5, Chloride 89 L, Carbon Dioxide 14 L, Anion Gap 26.5 H, BUN 81 H, Creatinine 3.70 H, Estimated Creat Clear 26, Estimated GFR 13 L*, Est GFR ( Amer) 16 L*, Glucose 111 H, Calcium 9.0 09/30/22 23:32: Urine Color Yellow, Urine Appearance Clear, Urine pH 5.5, Ur Specific [place] >= 1.030, Urine Protein Negative, Urine Glucose (UA) Negative, Urine Ketones Negative, Urine Blood Negative, Urine Nitrate Negative, Urine Bilirubin 1+ A, Urine Urobilinogen 0.2, Ur Leukocyte Esterase Negative, Urine RBC None, Urine WBC 3-5, Ur Squamous Epith Cells 3-5, Urine Bacteria 1+, Hyaline Casts 5-10 10/01/22 05:40: WBC 19.9 H, RBC 5.29, Hgb 12.2, Hct 39.1, MCV 73.9 L, MCH 23.1 L, MCHC 31.3 L, RDW 18.7 H, Plt Count 647 H, MPV 8.3, Neut % (Auto) 88.4 H, Lymph % (Auto) 3.4 L, [place] % (Auto) 6.4, Eos % (Auto) 1.6, Baso % (Auto) 0.2, Neut # (Auto) 17.6 H, Lymph # (Auto) 0.7, [place] # (Auto) 1.3 H, Eos # (Auto) 0.3, Baso # (Auto) 0.1, Total Counted 100, Neutrophils % (Manual) 86 H, Lymphocytes % (Manual) 3 L, Monocytes % (Manual) 11 H, Platelet Estimate Moderate increase, Hypochromasia 2+, Microcytosis 1+ 10/01/22 05:40: Sodium 126 L, Potassium 5.0, C
[2022-10-01 09:11] LABS: Urine Pregnancy, HCG Qual. Negative (Negative)
[2022-10-01 09:18] LABS: Creatinine,Urine Random 140 mg/dL (Not Estab.)
[2022-10-01 14:36] VITALS: BP 118/79; PULSE 91; RESP 16; TEMP 36.5; O2SAT 94
--- NOTE | 2022-10-01 15:08 | P.PCN_ITS ---
[facility] Procedure Note Date: 10/01/22 Time: 12:00 Procedure Note:: INDICATION: Ascites, abdominal distention, abdominal compartment syndrome PROCEDURE LONGWALL SHEARER OPERATOR: Dr. Pradeep Valencia ATTENDING PHYSICIAN: Dr. Pradeep Valencia Ultrasound used to [id number] location: Yes CONSENT: During the informed consent discussion regarding the procedure, or treatment, I explained the following to the patient/designee: a. Nature of the procedure or treatment and who will perform the procedure or treatment. b. Necessity for procedure and the possible benefits. c. Risks and complications (most common and serious). d. Alternative treatments and the risks, benefits and side effects of each (including no treatment). e. Likelihood of the patient achieving his/her goals without this procedure and surgery treatment. f. Problems that might occur during the recuperation. g. Conflicts of interest, if any PROCEDURE SUMMARY: A time-out was performed. My hands were washed immediately prior to the procedure. I wore a surgical cap, mask with protective eyewear, sterile field and sterile gloves throughout the procedure. The area was cleansed and draped in usual sterile fashion using chlorhexidine scrub. Anesthesia was achieved with 1% lidocaine. The right lower quadrant of the abdomen was prepped and draped in a sterile fashion using chlorhexidine scrub. 1% lidocaine was used to numb the skin, soft tissue and peritoneum. The paracentesis catheter was inserted and advanced with negative pressure until straw colored fluid was aspirated. Approximately 60 mL of ascitic fluid was collected and sent for laboratory analysis. The catheter was then connected to the vaccutainer and 4.75 liters of additional ascitic fluid were drained. The catheter was removed and no leaking was noted. A bandaid was placed over the puncture wound. The patient tolerated the procedure well without any immediate complications. Estimated blood loss was less than 1 mL. Given volume of fluid removed, administered 40 g of albumin IV dose adjusted for renal function. Vitals monitored throughout entire procedure with stable blood pressure.
[2022-10-01 15:17] LABS: Appearance,Body Fld. Slightly hazy
[2022-10-01 15:18] LABS: Source, Body Fld. Peritoneal Fluid; Volume,Body Fld. 24 mL
[2022-10-01 16:09] LABS: TNC,Body Fluid 175 cells/uL (< 1000)
[2022-10-01 16:10] LABS: RBC,Body Fluid < 10 cells/uL (< 10 X 10^3)
--- NOTE | 2022-10-01 17:00 | PC.NURSE ---
Patient tolerated bedside paracentesis well. VS stable and patient remained on room air. Pain reported and treated with prn pain medications, some relief noted. Patient able to ambulate to bedside chair and sat up for a couple of hours. Relief in abdomen noted, abdomen soft but distiller.
[2022-10-01 17:24] LABS: Mononuclear WBCs,Body Fluid 2 %; Polynuclear WBC,Body Fluid 5 %
[2022-10-01 20:00] VITALS: BP 112/73; PULSE 115; RESP 18; TEMP 36.1; O2SAT 94
[2022-10-01 21:10] LABS: Chloride 91 mmol/L (98-107)
[2022-10-01 21:11] LABS: Potassium 4.3 mmoL/L (3.5-5.1); Sodium 127 mmol/L (136-145)
[2022-10-01 21:14] LABS: Anion Gap 20.3 mEq/L (5-15); Calcium 8.8 mg/dl (8.4-10.2); Carbon Dioxide 20 mmol/L (22.0-30.0); Glucose 90 mg/dl (74-100)
[2022-10-01 21:21] LABS: Creatinine Clearance Estimated 31 mL/min (50-200); Estimated Glomerular Filt Rate 16 ml/min (>60); GFR (African American) 20 ML/MIN (>60)
[2022-10-01 21:42] LABS: Blood Urea Nitrogen 80 mg/dl (7-17)
[2022-10-01 23:58] VITALS: BP 96/65; PULSE 116; RESP 18; TEMP 36.1; O2SAT 93
[2022-10-02 04:00] VITALS: BP 104/59; PULSE 110; RESP 18; TEMP 36.1; O2SAT 91; BMI 30.7
--- NOTE | 2022-10-02 05:06 | PC.NURSE ---
Addendum entered by Marli Chaves RN 10/02/22 05:08: Patient did refuse a bath when offered one tonight Original Note: Patient has had a good night. Has not been in as much pain as last night. Velarde was removed at 2230 and patient did void spontaneously, see charting. Patient has rested with at bedside.
[2022-10-02 06:06] LABS: Basophils # 0.1 K/mm3 (0-0.2); Basophils % 0.3 % (0.1-2.0); Eosinophils # 0.3 K/mm3 (0.0-0.4); Eosinophils % 1.7 % (0.1-12.0); Hemoglobin 11.6 g/dL (12.2-16.2); Lymphocytes # 0.6 K/mm3 (0.7-4.5); Mean Corpuscular HGB Conc 31.3 g/dL (31.8-35.4); Mean Corpuscular Hemoglobin 23.2 pg (27.0-31.2); Mean Platelet Volume 8.1 fl (7.4-10.4); Monocytes # 0.9 K/mm3 (0.1-1.0); Monocytes % 5.2 % (1.7-9.3); Neutrophils # 16.2 K/mm3 (1.8-7.8); Neutrophils % 89.8 % (37.0-80.0); Platelet Count 591 K/mm3 (142-424); Red Blood Count 5.01 M/mm3 (4.20-5.40); Red Cell Distribution Width 18.8 % (11.5-17.5)
[2022-10-02 06:13] LABS: MANUAL DIFFERENTIAL MANUAL DIFFERENTIAL (MANUAL DIFF)
[2022-10-02 06:16] LABS: Chloride 93 mmol/L (98-107); Potassium 4.3 mmoL/L (3.5-5.1); Sodium 128 mmol/L (136-145)
[2022-10-02 06:19] LABS: Alanine Aminotransferase 20 U/L (12-78); Albumin/Globulin Ratio 1.1 (1.1-1.8); Alkaline Phosphatase 194 U/L (38-126); Anion Gap 21.3 mEq/L (5-15); Aspartate Amino Transferase 27 U/L (14-36); Bilirubin,Total 0.2 mg/dl (0.2-1.3); Carbon Dioxide 18 mmol/L (22.0-30.0); Globulin 2.7 g/dL (1.3-3.2); Glucose 80 mg/dl (74-100); Total Protein,Serum 5.7 g/dl (6.3-8.2)
[2022-10-02 06:20] LABS: Magnesium 2.5 mg/dl (1.6-2.3)
[2022-10-02 06:25] LABS: Creatinine Clearance Estimated 32 mL/min (50-200); Estimated Glomerular Filt Rate 17 ml/min (>60); GFR (African American) 21 ML/MIN (>60)
[2022-10-02 06:28] LABS: Blood Urea Nitrogen 80 mg/dl (7-17)
[2022-10-02 06:59] LABS: Lymphocytes % 5 % (10-50); Monocytes % 2 % (2-9); Neutrophils % 93 % (42-76); Platelet Estimate Slight Increase; RBC Morphology Normal; Total Cells Counted 100
[2022-10-02 08:00] VITALS: BP 102/70; PULSE 70; RESP 18; TEMP 36.6; O2SAT 92; O2SAT 98
[2022-10-02 09:19] LABS: Sodium, Urine <20 mmol/L (Not Estab.)
--- NOTE | 2022-10-02 10:52 | PC.NURSE ---
COURTESY TECH NOTE; ROUNDED ON PT, PT DENIED NEED FOR RESTROOM, DRINK, NEED TO REPOSITION. CALL LIGHT WITHIN REACH, NO FURTHER REQUESTS AT THIS TIME [facility]
--- NOTE | 2022-10-02 14:42 | EXP.DC.SUM ---
General Admission date:: 09/30/22 Discharge date: 10/03/22 HPI HPI HPI: Ms. rodrigues is a 42-year-old female with history of metastatic renal cell carcinoma. She is recently transition to hospice care over the past 1 to 2 weeks to focus on symptom management. She is discontinued all curative measures given the metastatic nature of her disease and failure to respond to previous therapy. Presented today to the ER because of weakness, nausea, and diarrhea. at bedside helps give history. States the patient had not had any bowel movements for 4 to 5 days and developed nausea yesterday that was subsequently followed by her first bowel movement in several days. She had been taking docusate and MiraLAX with no benefit. Started on lactulose yesterday. After having 3 small bowel movements yesterday, she began to have copious loose watery stools overnight last night. Today was very weak necessitating coming to the ER for further evaluation. On evaluation in the ER, patient has tachycardia and white cell count. There is limited concern for infection based on her presentation with no fever. Suspect white count secondary to her metastatic disease. Tachycardia due to dehydration. Also noted to have JANA with creatinine of 3.6. Held on paracentesis due to concern for fluid shifts and worsening JANA. Initiated fluid resuscitation with IV fluids. Requested admission to medicine for further management. Upon arrival to the floor, patient complains of just diffuse abdominal discomfort and distention. No emesis or nausea at this time. Denies any fevers or chest pain. Feels quite weak and is dozing during exam. supplements history. Renal cell carcinoma history as follows: Previous indwelling peritoneal drain for her ascites that was removed 3 months ago. Patient MD [facility] in [place] and Dr. Hang Estrada is her Oncologist. hx of 02/14 with lt renal cancer and then nephrectomy 04/16 at and then to 09/15 with metastasis previously on oral chemo until 2 weeks ago Hospital Course Hospital Course Hospital Course: 42-year-old female with metastatic renal cell carcinoma who presents with 1 day of significant diarrhea.? Found to have JANA.? Increasing abdominal distention.? No improvement in kidney function with fluids.? Patient having worsening kidney function likely due to compression of solitary kidney from ascitic fluid causing increased abdominal pressure.? Treated with paracentesis. Improvement in kidney function. Decreased distention. Stable for discharge home to resume hospice care. Problems addressed as follows: Malignant ascites Abdominal compartment syndrome -Increased distention, tenderness of abdominal wall, hypoactive bowel sounds, worsening renal function on presentation. Initially treated with IV fluids, kidney function worsened. Paracentesis performed 10/01 with improvement in symptoms, improvement in color of patient.? Repeat creatinine Showed improving creatinine. Creatinine had improved to 3.0 on morning of discharge. On antibiotics on admission given tachycardia and white cell count. Per record review, leukocytosis has been stable for many months now. No overt signs of infection. Antibiotics discontinued at discharge. Fluid consistent with peritoneal carcinomatosis. Will necessitate serial paracenteses moving forward given the extent of her disease, discussed this necessity with hospice. If renal function improves, will consider Lasix daily to slow development of further ascites. Repeat labs in a week. JANA Hyponatremia Hypokalemia Hypoalbuminemia -In the setting of diarrhea and poor p.o. intake, likely prerenal and related to increased abdominal pressure.? Received a liter of IV fluids in the ER. Started on maintenance fluids. Kidney function showed no improvement until paracentesis performed. Creatinine improved to 3.0 on day of discharge. Baseline is 0.9. Electrolyte disturbances including hyponatremia and hypochlorem
== END 2022-10-02 16:16 | disposition hospice, home (50) | DRG 683 ==
LOC: ER 12:52 → 2ND 14:00
PROVIDERS: Nurse Practitioner Family; Admitting Provider Internal Medicine Adolescent Medicine; Emergency Provider Student in an Organized Health Care Education/Training Program; PCP Emergency Medicine; Visit Provider Internal Medicine Adolescent Medicine
DX: N17.9 Acute kidney failure, unspecified (principal); C64.9 Malignant neoplasm of unspecified kidney, except renal pelvis; M79.A3 Nontraumatic compartment syndrome of abdomen; Z51.5 Encounter for palliative care; E87.1 Hypo-osmolality and hyponatremia; R18.0 Malignant ascites; C78.6 Secondary malignant neoplasm of retroperitoneum and peritoneum; E86.0 Dehydration; G89.29 Other chronic pain; M54.9 Dorsalgia, unspecified; R19.7 Diarrhea, unspecified; E87.6 Hypokalemia; E03.9 Hypothyroidism, unspecified; E88.09 Other disorders of plasma-protein metabolism, not elsewhere classified
CPT/HCPCS: 49083; 36415; 71045; 74176; 76770; 80048; 80053; 81001; 81025; 82570; 83735; 83880; 84100; 84300; 84484; 85007; 85025; 85610; 85730; 86850; 87040; 87070; 87205; 87636; 89051; 99285; C9803; J0696; J2405; P9047; U0003; U0005

== ENCOUNTER 2022-10-08 15:19 | Inpatient (IN) | payer OTHER, SELFPAY ==
[2022-10-08] VITALS (9 sets, daily range): BP systolic 109–138; BP diastolic 78–84; PULSE 120–130; RESP 21–27; TEMP 36.4–36.6; O2SAT 87–97; BMI 39.7; BMI 39.9
--- NOTE | 2022-10-08 15:21 | XR_ITS ---
FINAL REPORT CLINICAL HISTORY: sepsis, shortness of breath. COMPARISON: 09/30/2022 FINDINGS: SINGLE VIEW CHEST The heart size is normal. The mediastinum is within normal limits. There are numerous nodules in the lungs bilaterally compatible with metastatic disease. There is worsening left base opacification, possibly pneumonia, and a left pleural effusion is now present.. There is no evidence of pneumothorax. The bony thorax is intact. IMPRESSION: Numerous nodules in the lung [place] bilaterally also seen on the previous chest x-ray of September 30, compatible with metastatic disease. Worsening left base opacification, possibly pneumonia, and left pleural effusion since prior exam. Reviewed, Interpreted and Dictated by Jameson Summers III, MD Transcribed by Cherelle Phelan Authenticated and [facility]
[2022-10-08 15:31] LABS: Basophils # 0.1 K/mm3 (0-0.2); Basophils % 0.4 % (0.1-2.0); Eosinophils # 0.3 K/mm3 (0.0-0.4); Eosinophils % 1.1 % (0.1-12.0); Hematocrit 38.7 % (37.0-47.0); Hemoglobin 11.7 g/dL (12.2-16.2); Lymphocytes # 0.6 K/mm3 (0.7-4.5); Lymphocytes % 2.1 % (10-50); Mean Corpuscular HGB Conc 30.3 g/dL (31.8-35.4); Mean Corpuscular Hemoglobin 22.6 pg (27.0-31.2); Mean Corpuscular Volume 74.6 fl (81-99); Mean Platelet Volume 8.9 fl (7.4-10.4); Monocytes # 1.1 K/mm3 (0.1-1.0); Monocytes % 3.9 % (1.7-9.3); Neutrophils % 92.6 % (37.0-80.0); Platelet Count 447 K/mm3 (142-424); Red Blood Count 5.19 M/mm3 (4.20-5.40); Red Cell Distribution Width 19.8 % (11.5-17.5)
[2022-10-08 15:34] LABS: Alanine Aminotransferase 31 U/L (12-78); Albumin Level 2.8 g/dl (3.5-5.0); Alkaline Phosphatase 326 U/L (38-126); Anion Gap 25.1 mEq/L (5-15); Aspartate Amino Transferase 38 U/L (14-36); Bilirubin,Total 0.4 mg/dl (0.2-1.3); Calcium 10.8 mg/dl (8.4-10.2); Carbon Dioxide 14 mmol/L (22.0-30.0); Chloride 94 mmol/L (98-107); Creatinine Clearance Estimated 67 mL/min (50-200); Estimated Glomerular Filt Rate 31 ml/min (>60); GFR (African American) 37 ML/MIN (>60); Globulin 2.8 g/dL (1.3-3.2); Glucose 100 mg/dl (74-100); Potassium 5.1 mmoL/L (3.5-5.1); Sodium 128 mmol/L (136-145); Total Protein,Serum 5.6 g/dl (6.3-8.2)
[2022-10-08 15:36] LABS: Activated Partial Thrombo Time 34.2 seconds (22.8-30.6); INR 1.06 (0.9-1.1); Prothrombin Time 11.4 seconds (10.1-12.5)
[2022-10-08 15:38] LABS: Blood Urea Nitrogen 86 mg/dl (7-17)
[2022-10-08 15:38] LABS: VBG Base Excess -11.8 mmol/L (-2.4-2.3); VBG HCO3 13.3 mmol/L (23-30); VBG Oxygen Saturation 99.4 % (50-70); VBG PH 7.38 mmol/L (7.31-7.41); VBG PO2 165.1 mmol/L (28-40)
[2022-10-08 15:39] LABS: MANUAL DIFFERENTIAL MANUAL DIFFERENTIAL (MANUAL DIFF)
[2022-10-08 15:41] LABS: VBG PCO2 23.2 mmol/L (35-51)
[2022-10-08 15:45] LABS: NT Pro Brain Natriuretic Pep. 917 pg/mL (0-125)
[2022-10-08 15:50] LABS: Troponin I < 0.01 ng/ml (0.00-0.034)
[2022-10-08 15:52] LABS: Procalcitonin 12.6 ng/mL (0.0-2.0)
--- NOTE | 2022-10-08 15:56 | PC.NURSE ---
Attending aware of current Sepsis Risk. Discussed broad spectrum abx. No new orders
[2022-10-08 16:08] LABS: Anisocytosis 1+; Hypochromasia 2+; Lymphocytes % 8 % (10-50); Microcytosis 1+; Monocytes % 1 % (2-9); Neutrophils % 91 % (42-76); Platelet Estimate Normal; Total Cells Counted 100
--- NOTE | 2022-10-08 16:13 | PC.NURSE ---
ED MD SPEAKING WITH HOSPITALIST FOR ADMISSION
[2022-10-08 16:15] LABS: Ammonia 38 umol/L (9-30)
--- NOTE | 2022-10-08 16:16 | HMH.EDGENADL ---
Discharge Plan Disposition Patient Disposition: Admitted Condition: Serious Chief Complaint: Weakness Prescriptions Prescriptions: No Action nifedipine 30 mg tablet extended release 24hr 30 mg PO DAILY nystatin 100,000 unit/mL suspension 1 ml mucous membrane BID trazodone 50 mg tablet 50 mg PO HS Label Comments: TAKE 1 TABLET BY MOUTH EVERY NIGHT AT BEDTIME morphine concentrate 100 mg/5 mL (20 mg/mL) solution 0.5 mg PO Q4HP PRN (Reason: Pain) Label Comments: take 0.5 ML BY MOUTH EVERY 4 HOURS NEEDED FOR PAIN MAY CAUSE DROWSINESS fluconazole 150 mg tablet 150 mg PO DAILY Label Comments: TAKE 1 TABLET BY MOUTH EVERY OTHER DAY metoprolol succinate 50 mg tablet extended release 24 hr 50 mg PO DAILY Label Comments: TAKE 1 TABLET BY MOUTH ONCE DAILY ondansetron HCl 4 mg tablet 4 mg PO Q6HP PRN (Reason: Nausea) Label Comments: TAKE 1 TABLET BY MOUTH EVERY 6 HOURS NEEDED FOR NAUSEA FOR VOMITING levothyroxine 75 mcg tablet 75 mcg PO DAILY Label Comments: TAKE 1 TABLET BY MOUTH ONCE DAILY cyclobenzaprine 5 mg tablet 5 mg PO TIDP PRN (Reason: Muscle Spasm) Label Comments: TAKE 1 TABLET BY MOUTH THREE TIMES DAILY NEEDED everolimus (antineoplastic) 5 mg tablet 5 mg PO DAILY Lenvima 18 mg/day (10 mg x 1-4 mg x2) capsule 1 mg PO DAILY Clinical Impressions Clinical Impression: Sepsis, Pneumonia, Metastatic cancer Discharge ED Provider: Seferino Terry Adult HPI General Chief complaint: Weakness Stated complaint: WEAKNESS Time Seen by Provider: 10/08/22 15:20 Mode of Arrival: EMS Source of Information: Spouse and EMS Limitations: No Limitations Description of Symptoms (Recalled from ER Triage Doc. by RN): 42 F presents via EMS from home with increased lethargy, weakness, tachycardia, and declining cancer status. She is a patient of Hospice, but is still currently a Full Code. She began taking a homeopathic type treatment for her cancer which she started 3 days ago. Patient arrives on 4L/NC for saturation >90%. 20g LAC History of Present Illness HPI narrative: This is a 42-year-old female with a history of metastatic renal cell carcinoma who is in hospice care but full code who was just discharged from the hospital 2 weeks ago and presents to the ER with a complaint failure to thrive generalized weakness and increased shortness of breath. No fevers or chills no nausea vomiting. Patient also denies any orthopnea or pedal edema. In the emergency room patient is able to speak in full sentences. Related Data Home Medications Medication Instructions Recorded Confirmed cyclobenzaprine 5 mg tablet 5 mg PO TIDP PRN Muscle Spasm 10/08/22 10/08/22 everolimus (antineoplastic) 5 mg 5 mg PO DAILY Cancer 10/08/22 10/08/22 tablet fluconazole 150 mg tablet 150 mg PO DAILY Thrush 10/08/22 10/08/22 lenvatinib 18 mg/day (10 mg x 1 1 mg PO DAILY Cancer 10/08/22 10/08/22 and 4 mg x 2) capsule (Lenvima) levothyroxine 75 mcg tablet 75 mcg PO DAILY Thyroid 10/08/22 10/08/22 metoprolol succinate 50 mg 50 mg PO DAILY Heart rhythm 10/08/22 10/08/22 tablet,extended release 24 hr morphine concentrate 100 mg/5 mL 0.5 mg PO Q4HP PRN Pain 10/08/22 10/08/22 (20 mg/mL) oral solution nifedipine 30 mg tablet,extended 30 mg PO DAILY High blood pressure 10/08/22 10/08/22 release 24 hr nystatin 100,000 unit/mL oral 1 ml mucous membrane BID Thrush 10/08/22 10/08/22 suspension ondansetron HCl 4 mg tablet 4 mg PO Q6HP PRN Nausea 10/08/22 10/08/22 trazodone 50 mg tablet 50 mg PO HS Mood 10/08/22 10/08/22 Allergies Allergy/AdvReac Type Severity Reaction Status Date / Time No Known Allergies Allergy Verified 09/30/22 13:48 [facility] Disclaimer: The information contained in this section may have been updated after the patient was seen, as this information can be updated by other users. Social History (Revi
--- NOTE | 2022-10-08 16:17 | PC.NURSE ---
CARE MANAGEMENT NOTIFIED OF ADMISSION
[2022-10-08 16:18] LABS: Lactic Acid 2.5 mmol/L (0.7-2.1)
[2022-10-08 16:23] LABS: Coronavirus 19, PCR Not Detected (NotDetected); Influenza A, PCR Not Detected (NotDetected); Influenza B, PCR Not Detected (NotDetected)
--- NOTE | 2022-10-08 16:24 | EXP.PHA.CONS ---
Pharmacy Consult Date: 10/08/22 Time: 16:24 Referring provider: DR. LI Reason for Consult:: VANCOMYCIN DOSING Allergies Allergy/AdvReac Type Severity Reaction Status Date / Time No Known Allergies Allergy Verified 09/30/22 13:48 Home Medications Medication Instructions Recorded Confirmed Type cyclobenzaprine 5 mg tablet 5 mg PO TIDP PRN Muscle Spasm 10/08/22 10/08/22 History everolimus (antineoplastic) 5 mg 5 mg PO DAILY Cancer 10/08/22 10/08/22 History tablet fluconazole 150 mg tablet 150 mg PO DAILY Thrush 10/08/22 10/08/22 History lenvatinib 18 mg/day (10 mg x 1 1 mg PO DAILY Cancer 10/08/22 10/08/22 History and 4 mg x 2) capsule (Lenvima) levothyroxine 75 mcg tablet 75 mcg PO DAILY Thyroid 10/08/22 10/08/22 History metoprolol succinate 50 mg 50 mg PO DAILY Heart rhythm 10/08/22 10/08/22 History tablet,extended release 24 hr morphine concentrate 100 mg/5 mL 0.5 mg PO Q4HP PRN Pain 10/08/22 10/08/22 History (20 mg/mL) oral solution nifedipine 30 mg tablet,extended 30 mg PO DAILY High blood pressure 10/08/22 10/08/22 History release 24 hr nystatin 100,000 unit/mL oral 1 ml mucous membrane BID Thrush 10/08/22 10/08/22 History suspension ondansetron HCl 4 mg tablet 4 mg PO Q6HP PRN Nausea 10/08/22 10/08/22 History trazodone 50 mg tablet 50 mg PO HS Mood 10/08/22 10/08/22 History New Prescriptions to Start Prescriptions: Height: 1.63 m Weight: 105.687 kg Laboratory Results:: Laboratory Results - last 24 hr 10/08/22 15:13: WBC 27.0 H*, RBC 5.19, Hgb 11.7 L, Hct 38.7, MCV 74.6 L, MCH 22.6 L, MCHC 30.3 L, RDW 19.8 H, Plt Count 447 H, MPV 8.9, Neut % (Auto) 92.6 H, Lymph % (Auto) 2.1 L, [place] % (Auto) 3.9, Eos % (Auto) 1.1, Baso % (Auto) 0.4, Neut # (Auto) 25.0 H, Lymph # (Auto) 0.6 L, [place] # (Auto) 1.1 H, Eos # (Auto) 0.3, Baso # (Auto) 0.1, Total Counted 100, Neutrophils % (Manual) 91 H, Lymphocytes % (Manual) 8 L, Monocytes % (Manual) 1 L, Platelet Estimate Normal, Hypochromasia 2+, Anisocytosis 1+, Microcytosis 1+ 10/08/22 15:13: PT 11.4, INR 1.06, APTT 34.2 H 10/08/22 15:13: Sodium 128 L, Potassium 5.1, Chloride 94 L, Carbon Dioxide 14 L, Anion Gap 25.1 H, BUN 86 H, Creatinine 1.80 H, Estimated Creat Clear 67, Estimated GFR 31 L, Est GFR ( Amer) 37 L, Glucose 100, Calcium 10.8 H, Total Bilirubin 0.4, AST 38 H, ALT 31, Alkaline Phosphatase 326 H, Troponin I < 0.01, Total Protein 5.6 L, Albumin 2.8 L, Globulin 2.8, Albumin/Globulin Ratio 1.0 L, Procalcitonin 12.6 H 10/08/22 15:13: NT-Pro-B Natriuret Pep 917 H 10/08/22 15:22: VBG pH 7.38, VBG pCO2 23.2 L, VBG pO2 165.1 H, VBG HCO3 13.3 L, VBG Total CO2 14.0 L, VBG O2 Saturation 99.4 H, VBG Base Excess -11.8 L 10/08/22 15:24: Lactate 2.5 H 10/08/22 15:24: Ammonia 38 H Assessment and Plan Assessment and plan all Dx Assessment and Plan for all problems:: Pharmacokinetic dosing service Objective: Patient: Floor: Age: 42 yo Serum creatinine: 1.80 mg/dL Height: 64.2 Inches Weight (kg): 105.6 Assessment: IBW (kg): 55.16 Dosing wt(kg): 105.6 Estimated Creatinine clearance (ml/min): 35.1 CRCL method: Cockcroft and Gault using ibw(default). Drug selected: Vancomycin Loading dose (mg): Vd (liters): 79.2 (factor used: 0.75 L/kg) Uri (hr-1): 0.034 Half life (hrs): 20.39 CLvanco=?? 2.693 L/hr Recommended dose: 1500 mg Interval: 24 hrs Infusion time (hrs): 2.0 Predicted peak (mcg/mL): 32.8 Predicted trough (mcg/mL): 15.52 Total body weight is being used for vancomycin dosing. Recommendations: Give Vancomycin 1500 mg q 24 hrs with an expected Cpeak of 32.8 mcg/ml and an expected Ctrough of 15.52 mcg/ml AUC 0-24 /BING Data: BING 0.5 mcg/mL:?? AUC/BING:? 1114.0 BING 1.0 mcg/mL:?? AUC/BING:? 557.0 -------
--- NOTE | 2022-10-08 16:43 | PC.NURSE ---
Cefepime started here. Vanc sent to floor for nurse to begin
--- NOTE | 2022-10-08 16:48 | PC.NURSE ---
spoke with WALLY Juarez with hospice for pt update.
--- NOTE | 2022-10-08 17:05 | PC.NURSE ---
arrived to floor by stretcher from ED
--- NOTE | 2022-10-08 17:56 | EXP.HP ---
History of Present Illness *Admission Date: 10/08/22 *Reason for visit:: dyspnea, confusion, tacycardia *History of present illness: Ms. rodrigues is a 42-year-old female with history of metastatic renal cell carcinoma. She recently transitioned to hospice care within the past month. Was also recently admitted to the hospital 1 week ago for abdominal distention and JANA. Status post paracentesis with improvement in kidney function and relief of intra-abdominal pressure. She has been at home and was doing well for the first day or 2 but developed decreased p.o. intake due to the onset of thrush. Has proceeded to have a decline ever since. Also has developed cough over the past 3 to 4 days and shortness of breath. On arrival to the ER, patient is tachycardic, tachypneic, afebrile. Meeting SIRS criteria. Initial work-up concerning for pneumonia given worsening findings in the left lower lobe. Started on empiric antibiotics with cefepime and vancomycin. Medicine consulted for admission. Upon arrival to the floor, patient is somnolent. Will awaken and answer questions briefly however. Denies any abdominal pain or pain in her abdomen with movement of the bed. No nausea or vomiting. Has a dry nonproductive cough. Currently on 2 L nasal cannula oxygen with O2 sats in the low 90s. Appears more weak than on discharge a week ago. at bedside, supplements history. Renal cell carcinoma history as follows: Previous indwelling peritoneal drain for her ascites that was removed 3 months ago. Patient MD [facility] in [place] and Dr. Hang Estrada is her Oncologist. hx of 02/14 with lt renal cancer and then nephrectomy 04/16 at and then to 09/15 with metastasis previously on oral chemo until 2 weeks ago Trialing homeopathic treatment options at this time. Treatments via conventional medicine no longer an option. [facility] Disclaimer: The information contained in this section may have been updated after the patient was seen, as this information can be updated by other users. Medical History (Updated 10/08/22 @ 18:02 by Pradeep Valencia MD) Chronic back pain Hx of renal cell cancer Malignant ascites Metastatic cancer Metastatic renal cell carcinoma Surgical History (Updated 10/08/22 @ 18:00 by Pradeep Valencia MD) History of nephrectomy Family History (Updated 10/08/22 @ 18:00 by Pradeep Valencia MD) Cancer Mother Social History Smoking Status: Never smoker alcohol intake: never current occupational status: other Travel in the last 8 weeks: None Meds Home Medications and Allergies Home Medications Medication Instructions Recorded Confirmed Type cyclobenzaprine 5 mg tablet 5 mg PO TIDP PRN Muscle Spasm 10/08/22 10/08/22 History everolimus (antineoplastic) 5 mg 5 mg PO DAILY Cancer 10/08/22 10/08/22 History tablet fluconazole 150 mg tablet 150 mg PO DAILY Thrush 10/08/22 10/08/22 History lenvatinib 18 mg/day (10 mg x 1 1 mg PO DAILY Cancer 10/08/22 10/08/22 History and 4 mg x 2) capsule (Lenvima) levothyroxine 75 mcg tablet 75 mcg PO DAILY Thyroid 10/08/22 10/08/22 History metoprolol succinate 50 mg 50 mg PO DAILY Heart rhythm 10/08/22 10/08/22 History tablet,extended release 24 hr morphine concentrate 100 mg/5 mL 0.5 mg PO Q4HP PRN Pain 10/08/22 10/08/22 History (20 mg/mL) oral solution nifedipine 30 mg tablet,extended 30 mg PO DAILY High blood pressure 10/08/22 10/08/22 History release 24 hr nystatin 100,000 unit/mL oral 1 ml mucous membrane BID Thrush 10/08/22 10/08/22 History suspension ondansetron HCl 4 mg tablet 4 mg PO Q6HP PRN Nausea 10/08/22 10/08/22 History trazodone 50 mg tablet 50 mg PO HS Mood 10/08/22 10/08/22 History New Prescriptions to Start Prescriptions: Allergies Allergy/AdvReac Type Severity Reaction Status Date / Time No Known Allergies Allergy Verified 09/30/22 13:48 Exam Data for Last 24 hours Vital signs
[2022-10-08 19:04] LABS: Appearance,Body Fld. Hazy; Source, Body Fld. Paracentesis Fluid; Volume,Body Fld. 30 mL
[2022-10-08 19:09] LABS: RBC,Body Fluid < 10 cells/uL (< 10 X 10^3); TNC,Body Fluid 329 cells/uL (< 1000)
--- NOTE | 2022-10-08 19:33 | EXP.EVENT.NO ---
INDICATION: sepsis, abddominal distension PROCEDURE [employer] AND [employer] WELL TREATMENT OPERATOR: Pradeep Valencia MD Ultrasound used to abdulaziz location: Yes CONSENT: During the informed consent discussion regarding the procedure, or treatment, I explained the following to the patient/designee: a. Nature of the procedure or treatment and who will perform the procedure or treatment. b. Necessity for procedure and the possible benefits. c. Risks and complications (most common and serious). d. Alternative treatments and the risks, benefits and side effects of each (including no treatment). e. Likelihood of the patient achieving his/her goals without this procedure and surgery treatment. f. Problems that might occur during the recuperation. g. Conflicts of interest, if any PROCEDURE SUMMARY: A time-out was performed. My hands were washed immediately prior to the procedure. I wore a surgical cap, mask with protective eyewear, sterile gloves throughout the procedure. The area was cleansed and draped in usual sterile fashion using chlorhexidine scrub. Anesthesia was achieved with 1% lidocaine. The left side of the abdomen was prepped and draped in a sterile fashion using chlorhexidine scrub. 1% lidocaine was used to numb the skin, soft tissue and peritoneum. The paracentesis catheter was inserted and advanced with negative pressure until straw colored fluid was aspirated. Approximately 60 mL of ascitic fluid was collected and sent for laboratory analysis. The catheter was then connected to the vaccutainer and 1.5 liters of additional ascitic fluid were drained. Fluid initially straw-colored, last half liters was pink with sediment. The catheter was removed and no leaking was noted. A bandaid was placed over the puncture wound. The patient tolerated the procedure well without any immediate complications. Estimated blood loss was <1cc
[2022-10-08 19:59] LABS: Reflex Lactic Add Lactic Reflex
[2022-10-08 20:24] LABS: Adenovirus,PCR Not Detected (NotDetected); Bordetella Pertussis Not Detected (NotDetected); Chlamydophila Pneumoniae, PCR Not Detected (NotDetected); Coronavirus 19, PCR Not Detected (NotDetected); Coronavirus 229E Not Detected (NotDetected); Coronavirus NL63 Not Detected (NotDetected); Coronavirus OC43 Not Detected (NotDetected); Coronovirus HKU1,PCR Not Detected (NotDetected); Human Metapneumovirus Not Detected (NotDetected); Influenza A, PCR Not Detected (NotDetected); Influenza AH1, 2009 Not Detected (NotDetected); Influenza AH1, PCR Not Detected (NotDetected); Influenza AH3,PCR Not Detected (NotDetected); Influenza B, PCR Not Detected (NotDetected); Mycoplasma Pneumoniae, PCR Not Detected (NotDetected); Parainfluenza 1, PCR Not Detected (NotDetected); Parainfluenza 2, PCR Not Detected (NotDetected); Parainfluenza 3, PCR Not Detected (NotDetected); Parainfluenza 4, PCR Not Detected (NotDetected); Respiratory Syncytial Virus Not Detected (NotDetected); Rhinovirus/Enterovirus Not Detected (NotDetected)
[2022-10-08 20:37] LABS: Lactic Acid Follow Up (RFLX 1) 1.7 mmol/L (0.7-2.1)
[2022-10-08 20:45] LABS: Microscopic, Urine URINE MICROSCOPIC (MICROSCOPIC)
[2022-10-08 20:49] LABS: Appearance,Urine CLEAR (Clear); Blood, Urine TRACE-I (Negative); Color,Urine YELLOW (Yellow); Glucose,Urine (UA) Negative (Negative); Ketones,Urine 1+ (Negative); Leukocyte Esterase,Urine TRACE (Negative); Nitrate,Urine Negative (Negative); Protein,Urine TRACE (Negative); Urobilinogen,Urine 0.2 EU/dl (0.2)
[2022-10-08 20:50] LABS: Bilirubin,Urine 1+ (Negative)
[2022-10-08 20:56] LABS: RBC,Urine Occasional #/hpf (0-3); Squamous Epithelial Cell,Urine Occasional #/hpf (0-5); WBC,Urine Occasional #/hpf (0-3)
[2022-10-08 20:58] LABS: Mononuclear WBCs,Body Fluid 90 %; Polynuclear WBC,Body Fluid 10 %
--- NOTE | 2022-10-08 21:31 | PC.NURSE ---
courtesy note: assisted with bath @ 2100
--- NOTE | 2022-10-08 23:00 | PC.NURSE ---
Spoke with GRACIELA Greenwood concerning need for IV pain meds instead of PO. New order received.
[2022-10-09] VITALS (13 sets, daily range): BP systolic 93–119; BP diastolic 44–84; PULSE 41–144; RESP 12–37; TEMP 36.8–37.7; O2SAT 92–96; BMI 29.6
--- NOTE | 2022-10-09 04:55 | PC.NURSE ---
Spoke with GRACIELA Greenwood concerning the need for some cough medicine. Patient has had increasing coughing binges, but not productive. New order received for Robitussin 100mg syrup. No acute distress noted and will continue to monitor.
[2022-10-09 06:16] LABS: Chloride 99 mmol/L (98-107); Potassium 5.4 mmoL/L (3.5-5.1); Sodium 131 mmol/L (136-145)
[2022-10-09 06:17] LABS: Basophils # 0.1 K/mm3 (0-0.2); Basophils % 0.3 % (0.1-2.0); Eosinophils # 0.1 K/mm3 (0.0-0.4); Eosinophils % 0.4 % (0.1-12.0); Hematocrit 38.3 % (37.0-47.0); Hemoglobin 11.4 g/dL (12.2-16.2); Lymphocytes # 0.8 K/mm3 (0.7-4.5); Lymphocytes % 2.5 % (10-50); Mean Corpuscular HGB Conc 29.6 g/dL (31.8-35.4); Mean Corpuscular Hemoglobin 22.6 pg (27.0-31.2); Mean Corpuscular Volume 76.3 fl (81-99); Mean Platelet Volume 9.1 fl (7.4-10.4); Monocytes # 1.4 K/mm3 (0.1-1.0); Monocytes % 4.3 % (1.7-9.3); Neutrophils % 92.5 % (37.0-80.0); Platelet Count 402 K/mm3 (142-424); Red Blood Count 5.02 M/mm3 (4.20-5.40); Red Cell Distribution Width 19.7 % (11.5-17.5); White Blood Count 31.4 K/mm3 (4.8-10.8)
[2022-10-09 06:19] LABS: Alanine Aminotransferase 29 U/L (12-78); Albumin Level 2.6 g/dl (3.5-5.0); Albumin/Globulin Ratio 0.9 (1.1-1.8); Alkaline Phosphatase 260 U/L (38-126); Anion Gap 25.4 mEq/L (5-15); Aspartate Amino Transferase 40 U/L (14-36); Bilirubin,Total 0.2 mg/dl (0.2-1.3); Carbon Dioxide 12 mmol/L (22.0-30.0); Creatinine Clearance Estimated 49 mL/min (50-200); Estimated Glomerular Filt Rate 29 ml/min (>60); GFR (African American) 35 ML/MIN (>60); Globulin 2.8 g/dL (1.3-3.2); Glucose 87 mg/dl (74-100); Magnesium 2.5 mg/dl (1.6-2.3); Total Protein,Serum 5.4 g/dl (6.3-8.2)
[2022-10-09 06:20] LABS: MANUAL DIFFERENTIAL MANUAL DIFFERENTIAL (MANUAL DIFF)
[2022-10-09 06:35] LABS: Blood Urea Nitrogen 84 mg/dl (7-17)
--- NOTE | 2022-10-09 07:39 | EXP.PHA.CONS ---
Pharmacy Consult Date: 10/09/22 Time: 07:40 Referring provider: DR. WEST Reason for Consult:: VANCOMYCIN DOSING Allergies Allergy/AdvReac Type Severity Reaction Status Date / Time No Known Allergies Allergy Verified 09/30/22 13:48 Home Medications Medication Instructions Recorded Confirmed Type cyclobenzaprine 5 mg tablet 5 mg PO TIDP PRN Muscle Spasm 10/08/22 10/08/22 History everolimus (antineoplastic) 5 mg 5 mg PO DAILY Cancer 10/08/22 10/08/22 History tablet fluconazole 150 mg tablet 150 mg PO DAILY Thrush 10/08/22 10/08/22 History lenvatinib 18 mg/day (10 mg x 1 1 mg PO DAILY Cancer 10/08/22 10/08/22 History and 4 mg x 2) capsule (Lenvima) levothyroxine 75 mcg tablet 75 mcg PO DAILY Thyroid 10/08/22 10/08/22 History metoprolol succinate 50 mg 50 mg PO DAILY Heart rhythm 10/08/22 10/08/22 History tablet,extended release 24 hr morphine concentrate 100 mg/5 mL 0.5 mg PO Q4HP PRN Pain 10/08/22 10/08/22 History (20 mg/mL) oral solution nifedipine 30 mg tablet,extended 30 mg PO DAILY High blood pressure 10/08/22 10/08/22 History release 24 hr nystatin 100,000 unit/mL oral 1 ml mucous membrane BID Thrush 10/08/22 10/08/22 History suspension ondansetron HCl 4 mg tablet 4 mg PO Q6HP PRN Nausea 10/08/22 10/08/22 History trazodone 50 mg tablet 50 mg PO HS Mood 10/08/22 10/08/22 History New Prescriptions to Start Prescriptions: Height: 1.65 m Weight: 80.739 kg Laboratory Results:: Laboratory Results - last 24 hr 10/08/22 15:13: WBC 27.0 H*, RBC 5.19, Hgb 11.7 L, Hct 38.7, MCV 74.6 L, MCH 22.6 L, MCHC 30.3 L, RDW 19.8 H, Plt Count 447 H, MPV 8.9, Neut % (Auto) 92.6 H, Lymph % (Auto) 2.1 L, [place] % (Auto) 3.9, Eos % (Auto) 1.1, Baso % (Auto) 0.4, Neut # (Auto) 25.0 H, Lymph # (Auto) 0.6 L, [place] # (Auto) 1.1 H, Eos # (Auto) 0.3, Baso # (Auto) 0.1, Total Counted 100, Neutrophils % (Manual) 91 H, Lymphocytes % (Manual) 8 L, Monocytes % (Manual) 1 L, Platelet Estimate Normal, Hypochromasia 2+, Anisocytosis 1+, Microcytosis 1+ 10/08/22 15:13: PT 11.4, INR 1.06, APTT 34.2 H 10/08/22 15:13: Sodium 128 L, Potassium 5.1, Chloride 94 L, Carbon Dioxide 14 L, Anion Gap 25.1 H, BUN 86 H, Creatinine 1.80 H, Estimated Creat Clear 67, Estimated GFR 31 L, Est GFR ( Amer) 37 L, Glucose 100, Calcium 10.8 H, Total Bilirubin 0.4, AST 38 H, ALT 31, Alkaline Phosphatase 326 H, Troponin I < 0.01, Total Protein 5.6 L, Albumin 2.8 L, Globulin 2.8, Albumin/Globulin Ratio 1.0 L, Procalcitonin 12.6 H 10/08/22 15:13: NT-Pro-B Natriuret Pep 917 H 10/08/22 15:15: Chlamy pneumoniae PCR Not detected, Adenovirus (PCR) Not detected, B. pertussis DNA (PCR) Not detected, Coronavirus OC43 (PCR) Not detected, Coronavirus HKU1 (PCR) Not detected, Coronavirus 229E (PCR) Not detected, SARS-CoV-2 (PCR) Not detected, Coronavirus NL63 (PCR) Not detected, Human Metapneumovir PCR Not detected, Influenza A (H1) PCR Not detected, Influ A (H1N1/09) PCR Not detected, Influenza A (H3) PCR Not detected, Influenza Type A (PCR) Not detected, Influenza Type B (PCR) Not detected, M. pneumoniae (PCR) Not detected, Parainfluenza 1 (PCR) Not detected, Parainfluenza 2 (PCR) Not detected, Parainfluenza 3 (PCR) Not detected, Parainfluenza 4 (PCR) Not detected, RSV (PCR) Not detected, Entero/Rhino (PCR) Not detected 10/08/22 15:22: VBG pH 7.38, VBG pCO2 23.2 L, VBG pO2 165.1 H, VBG HCO3 13.3 L, VBG Total CO2 14.0 L, VBG O2 Saturation 99.4 H, VBG Base Excess -11.8 L 10/08/22 15:24: Lactate 2.5 H 10/08/22 15:24: Ammonia 38 H 10/08/22 16:15: SARS-CoV-2 (PCR) Not detected, Influenza A Untype (PCR) Not detected, Influenza Type B (PCR) Not detected 10/08/22 18:56: Fluid Source Paracentesis fluid, Fluid Volume 30, Fluid Appearance Hazy, Fluid RBC (Auto) < 10, Fld Tot Nucleated Cell 329, Fld Polynuclear WBCs % 10, Fld Mononuclear WBCs % 90 10/08/22 20:15: Lactate 1.7 10/08/22 20:40: Urine Color Yellow, Urine Appearance Clear, Urine pH 6.0, Ur Specific [place] 1.020, Urine Protein Trace, Uri
[2022-10-09 07:50] LABS: Lymphocytes % 4 % (10-50); Monocytes % 5 % (2-9); Neutrophils % 91 % (42-76); Total Cells Counted 100
[2022-10-09 07:51] LABS: Hypochromasia 2+; Microcytosis 1+; Platelet Estimate Normal
--- NOTE | 2022-10-09 09:37 | SW/DCPLANNER ---
Addendum entered by Stephenie Sellers 10/10/22 09:09: Updated patient information has been faxed to Daisy courtney/ [facility]. Original Note: Patient is currently established with [facility]. I have faxed updated patient information to Daisy Zafar: Hospice diagnosis is related to inpatient admission.
--- NOTE | 2022-10-09 11:05 | PC.NURSE ---
COURTESY TECH NOTE; ROUNDED ON PT 0915, ASSISTED NURSE TO POSITION PT ON BEDPAN AND REPOSITION IN BED. PT DENIED NEED FOR ASSISTANCE WITH ANYTHING AT THIS TIME. CALL LIGHT WITHIN REACH, NO FURTHER REQUESTS AT THIS TIME Alf AUGUSTE, SRNA
--- NOTE | 2022-10-09 11:27 | HMH.PHAINT1 ---
Pharmacy Intervention Comments: MEDICATION RECONCILIATION COMPLETED USING EXTERNAL FILL HISTORY FROM OUTSIDE PHARMACY AND DISCHARGE MED LIST FROM RECENT ADMISSION
--- NOTE | 2022-10-09 14:10 | PC.NURSE ---
THIS MORNING AT 0852 PT STATED HER PAIN WAS 6/10. MEDICATED WITH IV DILAUDID. BP DROPPED TO TO 78/57. AT BEDSIDE. 500 ML LR IVF BOLUS ORDERED. AT 0915 PT WAS SLEEPING. BP 108/61 AFTER BOLUS WAS COMPLETED.
--- NOTE | 2022-10-09 15:04 | EXP.ACUTE.PN ---
Subjective *Date: 10/09/22 *Time: 15:04 Interval history: Patient remains critically ill this morning. Continues to be tachycardic. Blood pressure softer today necessitating 500 cc bolus on rounds. Remains afebrile. Patient confused on rounds. No nausea or vomiting. Remains quite thirsty. Family at bedside. Making urine. Stable on 3 L oxygen Medical Exam Vital signs and Labs for Last 24 Hours: Vital Signs Temp Pulse Pulse Resp BP BP Pulse Ox 10/09/22 14:00 140 H 14 106/44 L 93 L 10/09/22 12:00 130 H 10/09/22 12:00 134 H 16 93/62 L 92 L 10/09/22 08:00 93 L 10/09/22 10:00 132 H 12 97/64 L 92 L 10/09/22 08:00 133 H 22 104/73 L 92 L 10/09/22 08:00 130 H 10/09/22 08:52 24 10/09/22 08:08 99.8 F H 10/09/22 04:00 132 H 16 109/60 L 92 L 10/09/22 04:00 130 H 10/08/22 20:00 120 H 10/09/22 00:00 130 H 10/09/22 00:00 130 H 17 115/84 93 L 10/08/22 23:43 130 H 10/08/22 20:00 121 H 22 138/84 93 L 10/08/22 20:00 95 10/08/22 20:00 125 H 10/08/22 17:51 96 10/08/22 17:25 97.6 F 10/08/22 16:54 98 F 127 H 26 H 109/81 L 10/08/22 16:02 129 H 24 117/83 97 10/08/22 15:30 127 H 24 118/78 92 L 10/08/22 15:18 128 H 21 121/82 92 L 10/08/22 15:19 98 F 130 H 27 H 121/82 87 L Intake and Output 10/08/22 10/09/22 10/09/22 23:59 07:59 15:59 Intake Total 3100 / 3130 30 / 30 0 / 30 Balance 3100 / 3130 30 / 30 0 / 30 Intake: Intake, Oral Amount 30 / 30 0 / 30 Intake, Total IV Amount 3100 / 3100 Other: Weight 81.845 kg 80.739 kg Patient Weight 10/09/22 23:59 Weight 80.739 kg Laboratory Results - last 24 hr 10/08/22 15:13: WBC 27.0 H*, RBC 5.19, Hgb 11.7 L, Hct 38.7, MCV 74.6 L, MCH 22.6 L, MCHC 30.3 L, RDW 19.8 H, Plt Count 447 H, MPV 8.9, Neut % (Auto) 92.6 H, Lymph % (Auto) 2.1 L, [place] % (Auto) 3.9, Eos % (Auto) 1.1, Baso % (Auto) 0.4, Neut # (Auto) 25.0 H, Lymph # (Auto) 0.6 L, [place] # (Auto) 1.1 H, Eos # (Auto) 0.3, Baso # (Auto) 0.1, Total Counted 100, Neutrophils % (Manual) 91 H, Lymphocytes % (Manual) 8 L, Monocytes % (Manual) 1 L, Platelet Estimate Normal, Hypochromasia 2+, Anisocytosis 1+, Microcytosis 1+ 10/08/22 15:13: PT 11.4, INR 1.06, APTT 34.2 H 10/08/22 15:13: Sodium 128 L, Potassium 5.1, Chloride 94 L, Carbon Dioxide 14 L, Anion Gap 25.1 H, BUN 86 H, Creatinine 1.80 H, Estimated Creat Clear 67, Estimated GFR 31 L, Est GFR ( Amer) 37 L, Glucose 100, Calcium 10.8 H, Total Bilirubin 0.4, AST 38 H, ALT 31, Alkaline Phosphatase 326 H, Troponin I < 0.01, Total Protein 5.6 L, Albumin 2.8 L, Globulin 2.8, Albumin/Globulin Ratio 1.0 L, Procalcitonin 12.6 H 10/08/22 15:13: NT-Pro-B Natriuret Pep 917 H 10/08/22 15:15: Chlamy pneumoniae PCR Not detected, Adenovirus (PCR) Not detected, B. pertussis DNA (PCR) Not detected, Coronavirus OC43 (PCR) Not detected, Coronavirus HKU1 (PCR) Not detected, Coronavirus 229E (PCR) Not detected, SARS-CoV-2 (PCR) Not detected, Coronavirus NL63 (PCR) Not detected, Human Metapneumovir PCR Not detected, Influenza A (H1) PCR Not detected, Influ A (H1N1/09) PCR Not detected, Influenza A (H3) PCR Not detected, Influenza Type A (PCR) Not detected, Influenza Type B (PCR) Not detected, M. pneumoniae (PCR) Not detected, Parainfluenza 1 (PCR) Not detected, Parainfluenza 2 (PCR) Not detected, Parainfluenza 3 (PCR) Not detected, Parainfluenza 4 (PCR) Not detected, RSV (PCR) Not detected, Entero/Rhino (PCR) Not detected 10/08/22 15:22: VBG pH 7.38, VBG pCO2 23.2 L, VBG pO2 165.1 H, VBG HCO3 13.3 L, VBG Total CO2 14.0 L, VBG O2 Saturation 99.4 H, VBG Base Excess -11.8 L 10/08/22 15:24: Lactate 2.5 H 10/08/22 15:24: Ammonia 38 H 10/08/22 16:15: SARS-CoV-2 (PCR) Not detected, Influenza A Untype (PCR) Not detected, Influenza Type B (PCR) Not detected 10/08/22 18:56: Fluid Source Paracentesis fluid, Fluid Volume 30, Fluid
--- NOTE | 2022-10-09 16:07 | PC.NURSE ---
PT IS RESTING IN BED WITH SEVERAL FAMILY MEMBERS AT BEDSIDE. THIS MORNING PT WAS CONFUSED AND HAD EXTREME DIFFICULTY WITH FINDING HER WORDS. PT'S STATED PT WAS VERY RESTLESS T/O THE NIGHT. PT SLEPT FOR A FEW HOURS THIS MORNING AFTER RECEIVING PAIN MEDICATION. HR HAS MAINTAINED 130-145 T/O THE SHIFT. O2 SATURATION HAS MAINTAINED 90-95% ON 4 L NC. PT HAS HAD 2 500 ML LR IVF BOLUS'S THIS SHIFT TO KEEP MAP >65. LUNG SOUNDS DIMINISHED WITH SCATTERED CRACKLES. 3+ PITTING EDEMA NOTED TO BILATERAL ANKLES/FEET. THIS AFTERNOON PT HAS BEEN MORE AWAKE AND HAS BEEN ABLE TO TALK TO HER CHILDREN AND OTHER FAMILY MEMBERS. PT HAS WARM/CLAMMY SKIN. ORAL TEMP 98.3. COOL WASHCLOTH APPLIED TO FOREHEAD. ORAL CARE PROVIDED. PT WAS ABLE TO TAKE A FEW SIPS OF [place] THIS AFTERNOON. PT STATED SHE WASN'T HAVING ANY PAIN AT THIS TIME. WILL CONTINUE TO MONITOR.
[2022-10-10] VITALS (11 sets, daily range): BP systolic 88–117; BP diastolic 62–68; PULSE 120–144; RESP 25–32; TEMP 36.7–38.1; O2SAT 90–94; BMI 29.5
[2022-10-10 06:25] LABS: Basophils # 0.1 K/mm3 (0-0.2); Basophils % 0.3 % (0.1-2.0); Eosinophils # 0.1 K/mm3 (0.0-0.4); Eosinophils % 0.3 % (0.1-12.0); Hemoglobin 10.3 g/dL (12.2-16.2); Lymphocytes # 0.9 K/mm3 (0.7-4.5); Lymphocytes % 2.9 % (10-50); Mean Corpuscular HGB Conc 29.3 g/dL (31.8-35.4); Mean Corpuscular Hemoglobin 22.7 pg (27.0-31.2); Mean Corpuscular Volume 77.3 fl (81-99); Mean Platelet Volume 9.7 fl (7.4-10.4); Monocytes # 1.3 K/mm3 (0.1-1.0); Monocytes % 4.3 % (1.7-9.3); Neutrophils # 27.1 K/mm3 (1.8-7.8); Neutrophils % 92.1 % (37.0-80.0); Platelet Count 344 K/mm3 (142-424); Red Blood Count 4.53 M/mm3 (4.20-5.40); White Blood Count 29.5 K/mm3 (4.8-10.8)
[2022-10-10 06:27] LABS: Chloride 103 mmol/L (98-107); Potassium 5.2 mmoL/L (3.5-5.1); Sodium 134 mmol/L (136-145)
[2022-10-10 06:29] LABS: Creatinine Clearance Estimated 51 mL/min (50-200); Estimated Glomerular Filt Rate 31 ml/min (>60); GFR (African American) 37 ML/MIN (>60)
[2022-10-10 06:30] LABS: Alanine Aminotransferase 28 U/L (12-78); Albumin Level 2.4 g/dl (3.5-5.0); Albumin/Globulin Ratio 0.9 (1.1-1.8); Alkaline Phosphatase 207 U/L (38-126); Anion Gap 26.2 mEq/L (5-15); Aspartate Amino Transferase 47 U/L (14-36); Bilirubin,Total 0.3 mg/dl (0.2-1.3); Calcium 10.9 mg/dl (8.4-10.2); Globulin 2.6 g/dL (1.3-3.2); Glucose 88 mg/dl (74-100); Magnesium 2.5 mg/dl (1.6-2.3)
[2022-10-10 06:31] LABS: MANUAL DIFFERENTIAL MANUAL DIFFERENTIAL (MANUAL DIFF)
[2022-10-10 06:35] LABS: Blood Urea Nitrogen 84 mg/dl (7-17); Carbon Dioxide 10 mmol/L (22.0-30.0)
--- NOTE | 2022-10-10 06:37 | PC.NURSE ---
notified [facility] of pt's critical BUN of 84 and CO2 of 10, no new orders at this time
[2022-10-10 09:05] LABS: Hypochromasia 2+; Lymphocytes % 3 % (10-50); Microcytosis 1+; Monocytes % 1 % (2-9); Neutrophils % 96 % (42-76); Platelet Estimate Normal; Total Cells Counted 100
--- NOTE | 2022-10-10 10:24 | PC.NURSE ---
COURTESY TECH NOTE; ROUNDED ON PT 0930, ASSISTED NURSES WITH Q2H TURN AND CHANGING PT BRIEF. PT FAMILY DENIED NEED FOR ASSISTANCE WITH ANYTHING. CALL LIGHT WITHIN REACH, NO FURTHER REQUESTS AT THIS TIME [facility]
--- NOTE | 2022-10-10 12:07 | EXP.ACUTE.PN ---
Subjective *Date: 10/10/22 *Time: 14:30 Interval history: Patient is tachycardic and tachypneic. Increased oxygen requirement 5 L this morning. Has been more delirious overnight. Not having any improvement or response to current antibiotics and fluids for her sepsis. White cell count remains elevated. Goals of care discussion with family at bedside this morning. Family expressing desire to transition to comfort care from treatment measures. No nausea or vomiting. No bowel movement since admission. Appears uncomfortable, restless. Medical Exam Vital signs and Labs for Last 24 Hours: Vital Signs Temp Pulse Pulse Resp BP BP Pulse Ox 10/10/22 08:30 129 H 27 H 107/64 L 92 L 10/10/22 08:00 125 H 90 L 10/10/22 10:00 126 H 29 H 95/62 L 91 L 10/10/22 08:00 98.3 F 126 H 27 H 88/63 L 92 L 10/10/22 08:00 120 H 10/10/22 05:56 123 H 32 H 93/62 L 93 L 10/10/22 04:00 120 H 10/10/22 04:00 127 H 27 H 99/68 L 92 L 10/10/22 02:00 130 H 28 H 117/67 90 L 10/10/22 00:00 131 H 26 H 94/65 L 94 L 10/09/22 23:55 95 10/10/22 00:00 130 H 10/09/22 22:00 98.3 F 134 H 27 H 119/58 L 95 10/09/22 20:00 41 L 10/09/22 20:00 96 10/09/22 20:00 141 H 37 H 100/51 L 96 10/09/22 18:00 141 H 28 H 108/62 L 94 L 10/09/22 16:00 140 H 10/09/22 16:00 98.3 F 144 H 28 H 99/59 L 93 L 10/09/22 14:00 140 H 14 106/44 L 93 L Intake and Output 10/09/22 10/10/22 10/10/22 23:59 07:59 15:59 Intake Total 1550 / 1580 1420 / 1540 120 / 1540 Output Total 325 / 325 200 / 600 400 / 600 Balance 1225 / 1255 1220 / 940 -280 / 940 Intake: Intake, Oral Amount 0 / 30 120 / 240 120 / 240 Intake, Total IV Amount 1550 / 1550 1300 / 1300 Cefepime HCl 2 gm In 0.9 % 100 / 100 100 / 100 Sodium Chloride 100 ml @ 200 mls/hr IV Q12H [facility] Rx#:[id number] Lactated Ringers 1000ML 1,000 1000 / 1000 ml @ 250 mls/hr IV .Q4H YA Rx# :[id number] Metronidaz/Sod Chl 500 mg In 200 / 200 200 / 200 100 ml @ 100 mls/hr IV Q6H YA Rx#:[id number] Ringers Solution,Lactated 500 500 / 500 ml @ 500 mls/hr IV .Q1H ONE Rx# :[id number] Ringers Solution,Lactated 500 500 / 500 ml @ 999 mls/hr IV .Q31M ONE Rx #:[id number] Vancomycin/Water For Inj (Peg) 250 / 250 1.25 gm In 250 ml @ 125 mls/hr IV Q24H [facility] Rx#:[id number] Output: Output, Urine Amount 325 / 325 200 / 600 400 / 600 Other: Number of Unmeasured Voids 1 1 0 Weight 80.286 kg Patient Weight 10/10/22 23:59 Weight 80.286 kg Laboratory Results - last 24 hr 10/10/22 05:42: WBC 29.5 H*, RBC 4.53, Hgb 10.3 L, Hct 35.0 L, MCV 77.3 L, MCH 22.7 L, MCHC 29.3 L, RDW 20.0 H, Plt Count 344, MPV 9.7, Neut % (Auto) 92.1 H, Lymph % (Auto) 2.9 L, [place] % (Auto) 4.3, Eos % (Auto) 0.3, Baso % (Auto) 0.3, Neut # (Auto) 27.1 H, Lymph # (Auto) 0.9, [place] # (Auto) 1.3 H, Eos # (Auto) 0.1, Baso # (Auto) 0.1, Total Counted 100, Neutrophils % (Manual) 96 H, Lymphocytes % (Manual) 3 L, Monocytes % (Manual) 1 L, Platelet Estimate Normal, Hypochromasia 2+, Microcytosis 1+ 10/10/22 05:42: Sodium 134 L, Potassium 5.2 H, Chloride 103, Carbon Dioxide 10 L D, Anion Gap 26.2 H, BUN 84 H, Creatinine 1.80 H, Estimated Creat Clear 51, Estimated GFR 31 L, Est GFR ( Amer) 37 L, Glucose 88, Calcium 10.9 H, Magnesium 2.5 H, Total Bilirubin 0.3, AST 47 H, ALT 28, Alkaline Phosphatase 207 H, Total Protein 5.0 L, Albumin 2.4 L, Globulin 2.6, Albumin/Globulin Ratio 0.9 L I & O for Labs for Last 24 Hours: Intake & Output 10/07/22 10/08/22 10/09/22 10/10/22 23:59 23:59 23:59 23:59 Intake Total 3100 / 3130 1580 / 1580 1540 / 1540 Output Total 325 / 325 600 / 600 Balance 3100 / 3130 1255 / 1255 940 / 940 Weight 81.845 kg 80.739 kg 80.286 kg Microbiology Reports for the Last 24 Hours: Microbiology
--- NOTE | 2022-10-10 13:28 | PC.NURSE ---
Pt repositioned. She wakes with stimulation. Family at bedside. Family declines any medication for pt at this time.
--- NOTE | 2022-10-10 13:42 | PC.NURSE ---
COURTESY TECH NOTE; ROUNDED ON PT 1150, PT SLEEPING AT THIS TIME, FAMILY DENIED NEED FOR ASSISTANCE WITH ANYTHING AT THIS TIME. CALL LIGHT WITHIN REACH, NO FURTHER REQUESTS. Alf AUGUSTE, SRNA
--- NOTE | 2022-10-10 16:18 | PC.NURSE ---
Pt administered morphine for pain and resting comfortably at this time. HR remains tachycardic. Pt 95% on 3L NC. BP stable 105/68. Family remains at bedside.
[2022-10-11] VITALS: PULSE 152
[2022-10-11 04:00] VITALS: PULSE 155
--- NOTE | 2022-10-11 07:08 | PC.NURSE ---
Patient has had family at bedside thoughout the night. see MAR.
[2022-10-11 07:40] VITALS: BP 86/44
--- NOTE | 2022-10-11 09:36 | PC.NURSE ---
TOD 0858. AUDREY contacted at [phone]. Ruled out.
--- NOTE | 2022-10-11 10:17 | EXP.DC.SUM ---
General Admission date:: 10/08/22 Discharge date: 10/11/22 HPI HPI HPI: Ms. rodrigues is a 42-year-old female with history of metastatic renal cell carcinoma. She recently transitioned to hospice care within the past month. Was also recently admitted to the hospital 1 week ago for abdominal distention and JANA. Status post paracentesis with improvement in kidney function and relief of intra-abdominal pressure. She has been at home and was doing well for the first day or 2 but developed decreased p.o. intake due to the onset of thrush. Has proceeded to have a decline ever since. Also has developed cough over the past 3 to 4 days and shortness of breath. On arrival to the ER, patient is tachycardic, tachypneic, afebrile. Meeting SIRS criteria. Initial work-up concerning for pneumonia given worsening findings in the left lower lobe. Started on empiric antibiotics with cefepime and vancomycin. Medicine consulted for admission. Upon arrival to the floor, patient is somnolent. Will awaken and answer questions briefly however. Denies any abdominal pain or pain in her abdomen with movement of the bed. No nausea or vomiting. Has a dry nonproductive cough. Currently on 2 L nasal cannula oxygen with O2 sats in the low 90s. Appears more weak than on discharge a week ago. at bedside, supplements history. Renal cell carcinoma history as follows: Previous indwelling peritoneal drain for her ascites that was removed 3 months ago. Patient MD [facility] in [place] and Dr. Hang Estrada is her Oncologist. hx of 02/14 with lt renal cancer and then nephrectomy 04/16 at and then to 09/15 with metastasis previously on oral chemo until 2 weeks ago Trialing homeopathic treatment options at this time. Treatments via conventional medicine no longer an option. Hospital Course Hospital Course Hospital Course: Patient with metastatic renal cell carcinoma on home hospice admitted for amelioration of abdominal discomfort. Patient received paracentesis during hospitalization, and initially improved. However, unfortunately patient developed respiratory distress during hospitalization, and patient empirically diagnosed with pneumonia and started on broad-spectrum antibiotics. Patient continued to clinically deteriorate and on comfort care measures 10/11/2022 at 8:58 AM. Patient's family including present when patient . Patient's family including declined autopsy. Exam Data for Last 24 hours Vital signs and Labs for Last 24 Hours: Temp Pulse Resp BP Pulse Ox 100.6 F H 155 H 25 H 86/44 L 94 L 10/10/22 20:00 10/11/22 04:00 10/10/22 16:20 10/11/22 07:40 10/10/22 16:20 I & O for Last 24 hours: Intake & Output 10/08/22 10/09/22 10/10/22 10/11/22 23:59 23:59 23:59 23:59 Intake Total 3100 / 3130 1580 / 1580 1890 / 1890 0 / 0 Output Total 325 / 325 600 / 600 0 / 0 Balance 3100 / 3130 1255 / 1255 1290 / 1290 0 / 0 Weight 81.845 kg 80.739 kg 80.286 kg Microbiology Reports for the Last 24 Hours: Microbiology 10/08/22 18:56 Ascites Fluid Gram Stain - Final 10/08/22 18:56 Ascites Fluid Body Fluid Culture - Preliminary NO GROWTH AFTER 48 HOURS 10/08/22 15:52 Blood Blood Culture - Preliminary NO GROWTH AFTER 48 HOURS 10/08/22 15:59 Blood Blood Culture - Preliminary NO GROWTH AFTER 48 HOURS Constitutional Comments: No response to sternal rub or nailbed pressure *Routine HEENT Exam Comments: Pupils dilated without corneal reflex *Routine Respiratory Exam Comments: No breath sounds *Routine Cardiovascular Exam Comments: No heart sounds Results Data Completed and Pending Labs on day of discharge: Preliminary micro results at discharge 10/08/22 18:56 Body Fluid Culture - Preliminary Ascites Fluid NO GROWTH AFTER 48 HOURS 10/08/22 15:52 Blood Culture - Preliminary Blood NO JAMESON
== END 2022-10-11 12:39 | disposition expired | DRG 871 ==
LOC: ER 16:21 → 2ND 16:58
PROVIDERS: Admitting Provider Internal Medicine Adolescent Medicine; Emergency Provider Emergency Medicine; PCP Emergency Medicine; Visit Provider Internal Medicine Adolescent Medicine
DX: A41.9 Sepsis, unspecified organism (principal); J18.9 Pneumonia, unspecified organism; R18.0 Malignant ascites; E87.1 Hypo-osmolality and hyponatremia; C79.9 Secondary malignant neoplasm of unspecified site; Z85.528 Personal history of other malignant neoplasm of kidney; M54.9 Dorsalgia, unspecified; G89.29 Other chronic pain; B37.9 Candidiasis, unspecified; E03.9 Hypothyroidism, unspecified; Z66 Do not resuscitate; Z51.5 Encounter for palliative care
CPT/HCPCS: 36415; 71045; 80053; 81001; 82140; 82803; 83605; 83735; 83880; 84145; 84484; 85007; 85025; 85610; 85730; 87040; 87070; 87205; 87581; 87632; 87636; 87798; 89051; 94761; 99285; C9803; U0003; U0005